=== PATIENT | female | born 1945 | race Caucasian/White ===

== ENCOUNTER → 2019-02-05 10:17 | Outpatient (CLI) | payer MEDICARE, SELFPAY ==
[2019-02-05 11:17] LABS: Color, Urine Yellow (Yellow); Glucose, Dipstick Normal (Normal); Ketone-Dipstick 5 mg/dl (Negative); Leukocyte Esterase-Dipstick 500 /ul (Negative); Nitrite-Dipstick Negative (Negative); Occult Blood-Urine Negative /ul (Negative); Protein-Dipstick 30 mg/dl (Negative); Urine Bilirubin Dipstick Negative (Negative); Urine Clarity Sl. Cloudy (Clear); Urine Urobilinogen Normal (Normal)
[2019-02-05 11:18] LABS: Absolute Lymphocyte Count 1.49 X10^3/uL (0.83-4.51); Absolute Neutrophil Count 4.7 X10^3/uL (2.0-7.7); Basophil# 0.03 X10^3/uL; Basophil% 0.4 % (0-1); Eosinophil# 0.09 X10^3/uL; Eosinophils% 1.3 % (0-5); Hematocrit 47.2 % (37-47); Hemoglobin 15.2 g/dL (12.0-15.0); Lymphocyte # 1.49 X10^3/ul (4.0); Lymphocyte % 21.5 % (19-41); Mean Corp Hgb Conc 32.2 g/dL (32-36); Mean Corpuscular Hgb 30.4 pg (27.0-32.0); Mean Corpuscular Volume 94.4 fL (81-99); Mean Platelet Vol. 9.8 fl (6.2-12.0); Monocyte# 0.59 X10^3/uL; Monocyte% 8.5 % (0-10); NRBC Flagged by Analyzer 0 % (0-5); Neutrophil # 4.68 X10^3/uL (2.7-7.7); Neutrophil % 67.6 % (47-70); Platelet Count 237 K/mm3 (150-450); RBC Distribution Width CV 13.8 % (11.6-14.6); RBC Distribution Width SD 47.7 fl (35.1-43.9); White Blood Count 6.9 K/mm3 (4.4-11.0)
[2019-02-05 11:38] LABS: Hemoglobin A1c 8.3 % (4.2-6.3)
[2019-02-05 11:48] LABS: ALB/GLOB Ratio 0.9 RATIO (0.9-2.4); AST(SGOT) 15 U/L (15-37); Alanine Aminotransfer ALT/SGPT 29 U/L (13-56); Albumin, Serum 3.5 g/dL (3.2-5.0); Alkaline Phosphatase 117 U/L (45-117); Anion Gap 8 (5-15); BUN 22 mg/dL (7-18); BUN/Creat Ratio 23.6 RATIO (10-20); CRP, High Sensitivity Cardiac 3.27 mg/L; Calcium,Total 8.9 mg/dL (8.5-10.1); Chloride 108 mmol/L (98-107); Cholesterol 201 mg/dL (200); Creatinine, Serum 0.93 mg/dL (0.55-1.02); EST Glomerular Filtration Rate 63 mL/min (>60); Est Glom Filt Rate - Afr Amer 76 mL/min (>60); Globulin 4.1 g/dL (2.2-4.2); Glucose 94 mg/dL (74-106); High Density Lipoprotein 83 mg/dL; Potassium 4.3 mmol/L (3.5-5.1); Protein, Total 7.6 g/dL (6.4-8.2); Sodium Level 141 mmol/L (136-145); Thyroid Stim Hormone (TSH) 1.65 uIU/mL (0.358-3.74); Triglycerides 82 mg/dL; Very Low Density Lipoprotein 16 mg/dL (5-40)
[2019-02-07 10:53] LABS: Vitamin D,25 Hydroxy 16.3 ng/mL (29.95-100.01)
[2019-02-07 11:24] LABS: BNP,B-Type NATRIURETIC PEPTIDE 18.9 pg/mL (0-100)
[2019-02-07 14:07] LABS: Red Blood Cell Count Test/G6PD 4.84 x10E6/uL (3.77-5.28)
[2019-02-07 16:30] LABS: G6PD Quant Test 258 (146-376)
== END ==
PROVIDERS: Referring Provider Nurse Practitioner Family; Visit Provider Nurse Practitioner Family
DX: E66.9 Obesity, unspecified (principal); R53.82 Chronic fatigue, unspecified
CPT/HCPCS: 36415; 80053; 80061; 81002; 82306; 82955; 83036; 83880; 84443; 85025; 86141

== ENCOUNTER 2023-06-18 08:30 | Outpatient (RCR) | payer MEDICARE, SELFPAY ==
[2023-06-04 09:19] VITALS: BP 144/89; PULSE 93; RESP 18; TEMP 36; BMI 45.5
--- NOTE | 2023-06-04 09:22 | PCM.WC.HP ---
History of Present Illness Date of Service: 06/04/23 Chief Complaint: Right lower extremity ulceration History of Wound: Patient is a 77-year-old female with PMHx of HTN, diabetes mellitus type II, HLD, obesity who presents to the wound care center for right lower extremity ulceration with localized redness. Patient had been started on doxycycline and silver sulfasalazine cream with compression stocking. There was some improvement noted by nurse practitioner however they did switch her to Bactrim for 10 days, stop date 06/05/2023 and daily application of Medihoney. She states she has not been wearing the compression stockings or Tubigrip. She was referred to the wound center for a nonhealing ulceration to the posterior aspect of the right lower extremity. Patient denies N/V/F/chills. Denies further complaints. [facility] Medical History (Updated 06/04/23 @ 10:[address] Antoine Pickard, DPReyna) Benign hypertension Breast lump Diabetes Diabetes High blood pressure High cholesterol Kidney stones Mixed hyperlipidemia Obesity UTI (urinary tract infection) Home Medications Ozempic 0.25 mg or 0.5 mg (2 mg/1.5 mL) subcutaneous pen injector (semaglutide) 0.5 mg (0.4 mL) subcut QWEEK #1.5 mL 09/05/20 [Rx Last Taken Unknown] allopurinol 300 mg tablet tablet PO 09/05/20 [History Last Taken Unknown] atorvastatin 20 mg tablet 10 mg PO DAILY 09/05/20 [History Last Taken Unknown] enalapril maleate 20 mg tablet tablet PO 09/05/20 [History Last Taken Unknown] insulin glargine 100 unit/mL subcutaneous solution 50 unit subcut QPM 09/05/20 [History Last Taken Unknown] insulin glargine 100 unit/mL subcutaneous solution (Lantus U-100 Insulin) 50 unit (0.5 mL) subcut DAILY #10 mL 09/05/20 [Rx Last Taken Unknown] metoprolol succinate 50 mg tablet,extended release 24 hr ea PO 09/05/20 [History Last Taken Unknown] nystatin 100,000 unit/gram topical cream gm topical 09/05/20 [History Last Taken Unknown] omeprazole 20 mg capsule,delayed release cap PO 09/05/20 [History Last Taken Unknown] potassium citrate 10 mEq (1,080 mg) tablet,extended release tablet PO 09/05/20 [History Last Taken Unknown] Allergy/AdvReac Type Severity Reaction Status Date / Time clindamycin Allergy Severe swelling Verified 09/05/20 13:08 erythromycin base Allergy Severe swelling Verified 09/05/20 13:08 Penicillins Allergy Severe swelling Verified 09/05/20 13:08 Family History Other Bowel disease Surgical History H/O ileostomy H/O lithotripsy H/O: hysterectomy Social History Smoking Status: Never smoker alcohol intake: never substance use type: does not use what type of physical activity do you participate in: none ROS Constitutional Constitutional: Denies anorexia, chills or fever(s) Eyes Eyes: Denies blurry vision, change in vision or double vision ENT HEENT: Denies dysphagia, nasal congestion, nasal discharge or sore throat Cardiovascular Cardiovascular: Denies chest pain, claudication or palpitations Respiratory/Chest Respiratory/Chest: Denies cough, shortness of breath at rest or wheezing Gastrointestinal Gastrointestinal: Denies abdominal pain, constipation, diarrhea, nausea or vomiting Genitourinary Genitourinary: Denies dysuria, hematuria or urinary urgency Musculoskeletal Musculoskeletal: Denies joint pain, joint stiffness or joint swelling Integumentary Integumentary: Denies lesions, pruritus or rash Neurologic Neurologic: Denies dizziness, numbness or seizures Psychiatric Psychiatric: Denies anxiety or depression Endocrine Endocrinology: Denies cold intolerance or heat intolerance Hematologic/Lymphatic Hematologic/Lymphatic: Denies easy bleeding or easy bruising Physical Exam Const alert, oriented x3, no apparent distress and well nourished General Appearance: cooperative HEENT normocephalic Eyes General Eye: normal appearance of both eyes Neck General: normal visual inspection Lymph Lymphatic: no lymphadenopathy noted and no lymphedema noted Chest inspection of chest normal Resp normal respiratory effort Cardio regular rate and regular rhythm Extremity normal capillary refill, no joint enlargement, no calf tenderness and no pedal edema Extremity Narrative: Vascular: DP and PT pulses palpable to bilateral lower extremity. Capillary fill time less than 4 seconds to digits bilateral. Temperature gradient is normal bilateral. Hair growth diminished to digits bilateral. Musculoskeletal: Muscle strength 5 of 5 age-appropriate. There is decreased range of motion of the ankle joint in dorsiflexion bilateral with the knee extended without pain or crepitus. There is decreased range of motion of the first metatarsophalangeal joint bilateral without pain or crepitus noted. Dermatological: There is noted bilateral lipodermatosclerosis with hyperpigmentation?hemosiderin staining to anterior lower extremity bilateral. There is a positive Stemmer sign noted bilateral second digit. Left lower extremity demonstrates no open wounds currently. Right lower extremity demonstrates a posterior mid calf ulceration secondary to chronic venous stasis/insufficiency. Ulceration demonstrates mixed fibrogranular layer with serous fluid drainage. Ulceration demonstrates localized rubor secondary to her chronic venous stasis. No signs of infection. Skin no rashes or lesions noted, skin turgor normal and no jaundice General Skin Exam: venous stasis and dermatitis Neuro moves all extremities Debridement Note Debridement Note Wound debrided: Right lower extremity Laterality: Right Wound Grade/Stage: Talbot stage I Type of Debridement: Excisional debridement Anesthesia Used: 5% Lidocaine Gel Depth: Down to and including healthy tissue and in the subcutaneous layer Percentage of wound debrided: 100 Instrument Used: 5mm curette Tissue Removed: Fibrous, devitalized subcutaneous, biofilm, slough Severity: Fat Layer Exposed Amount of bleeding with debridement: Mild Bleeding Controlled with: Compression and gauze Patient tolerated procedure: Patient tolerated procedure well Assessment/Plan Assessment/Plan (1) Non-pressure chronic ulcer of right calf with fat layer exposed: CODE(S): L97.212 - Non-pressure chronic ulcer of right calf with fat layer exposed (2) Lipodermatosclerosis of both lower extremities: CODE(S): M79.3 - Panniculitis, unspecified (3) Lymphedema, not elsewhere classified: CODE(S): I89.0 - Lymphedema, not elsewhere classified (4) Venous insufficiency (chronic) (peripheral): CODE(S): I87.2 - Venous insufficiency (chronic) (peripheral) (5) Diabetes: CODE(S): E11.9 - Type 2 diabetes mellitus without complications QUALIFIERS: Diabetes mellitus complication status: with hyperglycemia Diabetes mellitus salvage determiner insulin use: with salvage determiner use Diabetes mellitus type: type 2 Qualified Code(s): E11.65 - Type 2 diabetes mellitus with hyperglycemia; Z79.4 - alf (current) use of insulin (6) Benign hypertension: CODE(S): I10 - Essential (primary) hypertension (7) Mixed hyperlipidemia: CODE(S): E78.2 - Mixed hyperlipidemia (8) Obesity: CODE(S): E66.9 - Obesity, unspecified QUALIFIERS: Body mass index: BMI 40.0-44.9 Obesity classification: adult class 3 (BMI >= 40) Obesity type: due to excess calories Serious obesity comorbidity presence: with serious comorbidity Qualified Code(s): E66.01 - Morbid (severe) obesity due to excess calories; Z68.41 - Body mass index [BMI]40.0-44.9, adult PLAN: Plan Patient seen and evaluated Ulceration to the posterior right lower extremity underwent debridement as noted in the clinical panel above. Ulceration measures 4.0 cm x 2.0 cm x 0.1 cm. No signs of infection. Autumn applied to the wound base today and dressed with Unna boot compression to the right lower extremity. Unna boot compression was also applied to the left lower extremity. She was instructed to not get the dressings wet. Will seek approval for application of advanced wound care product for application at next visit. Discussed the importance of wearing compression stockings as patient has longstanding history of chronic venous insufficiency with lipodermatosclerosis of bilateral lower extremity. This was discussed with patient and daughter today. Discussed continued elevation of the lower extremities at all times of rest. Discussed the importance of compression to aid in wound healing in addition to preventing recidivism of wound following her healed status. Discussed adequate protein intake to aid in wound healing. Gunnar supplementation recommended. Discussed proper diabetic diet to aid in overall glycemic control. Discussed importance of glycemic control in healing. Discussed importance of daily foot checks, discussed she is to not ambulate barefoot, this includes socks. And shoe gear was encouraged to be worn at all times. Patient was encouraged to finish current oral antibiotic Bactrim to completion, stop date 06/05/2023. Discussed signs and symptoms of infection and to observe for. Discussed if she gets redness about the wound that moves up the leg, increasing purulent drainage, increasing foul odor from the wound, or if she experiences fever greater than 101 degree accompanied by nausea, vomiting, chills that these are signs of a progressing infection and she should report to the ED for IV antibiotics and further evaluation. She voices understanding of this today. The following work up and care recommendations were made: Dressing: Autumn, dry sterile dressing, bilateral Unna boot compression. Do not change dressing Wash: Do not get wet Tissue growth optimization: Autumn Offload: Continue to elevate and pad posterior right lower extremity with pillow to offload ulcerative site. Vascular: Palpable DP and PT pulses with adequate capillary fill time, vascular status is not impacting healing at this time. Edema: Continued elevation of the lower extremities to aid in edema control, continued use of compression stockings Infection: No signs of infection. Patient currently finishing oral antibiotic as stated above. Pain: May take [id number] Tylenol for discomfort Host factors: DM type II, lipodermatosclerosis bilateral, chronic venous insufficiency/stasis, lymphedema, patient compliance in wearing compression stocking I answered all the patient's questions. To return to the wound healing center in 1 week or call sooner if the patient has any questions or concerns.
[2023-06-08 14:46] VITALS: BP 142/63; PULSE 96; RESP 20; TEMP 36.1; BMI 45.5
--- NOTE | 2023-06-11 11:30 | PCM.WC.PN ---
History of Present Illness Date of Service: 06/11/23 Chief Complaint: Right lower extremity ulceration History of Wound: Patient is a 77-year-old female with PMHx of HTN, diabetes mellitus type II, HLD, obesity who presents to the wound care center for right lower extremity ulceration with localized redness. Patient had been started on doxycycline and silver sulfasalazine cream with compression stocking. There was some improvement noted by nurse practitioner however they did switch her to Bactrim for 10 days, stop date 06/05/2023 and daily application of Medihoney. She states she has not been wearing the compression stockings or Tubigrip. She was referred to the wound center for a nonhealing ulceration to the posterior aspect of the right lower extremity. Patient denies N/V/F/chills. Denies further complaints. Subjective Subjective This is a 77-year-old female who presents today to the wound center for follow-up of right lower extremity ulceration. Patient has kept dressings clean, dry, and intact to bilateral lower extremity, Unna boot dressing was then changed earlier in the week. Patient states she has tolerated this well and can notice some of the swelling is starting to decrease. She denies constitutional symptoms today. Denies further complaints today. Objective Data Objective Data Vital Signs: Vital Signs Temp Pulse Resp BP O2 Del Method 97 F L 96 20 H 142/63 H Room Air 06/08/23 14:46 06/08/23 14:46 06/08/23 14:46 06/08/23 14:46 06/04/23 09:19 Oxygen Delivery Method Room Air Weight: 109.316 kg Body Mass Index (BMI) 45.5 Physical Exam Const alert, oriented x3, no apparent distress and well nourished General Appearance: cooperative HEENT normocephalic Eyes General Eye: normal appearance of both eyes Neck General: normal visual inspection Lymph Lymphatic: no lymphadenopathy noted and no lymphedema noted Chest inspection of chest normal Resp normal respiratory effort Cardio regular rate and regular rhythm Extremity normal capillary refill, no joint enlargement, no calf tenderness and no pedal edema Extremity Narrative: Vascular: DP and PT pulses palpable to bilateral lower extremity. Capillary fill time less than 4 seconds to digits bilateral. Temperature gradient is normal bilateral. Hair growth diminished to digits bilateral. Musculoskeletal: Muscle strength 5 of 5 age-appropriate. There is decreased range of motion of the ankle joint in dorsiflexion bilateral with the knee extended without pain or crepitus. There is decreased range of motion of the first metatarsophalangeal joint bilateral without pain or crepitus noted. Dermatological: There is noted bilateral lipodermatosclerosis with hyperpigmentation?hemosiderin staining to anterior lower extremity bilateral. There is a positive Stemmer sign noted bilateral second digit. Left lower extremity demonstrates no open wounds currently. Right lower extremity demonstrates a posterior mid calf ulceration secondary to chronic venous stasis/insufficiency. Ulceration demonstrates mixed fibrogranular layer with serous fluid drainage. Ulceration demonstrates localized rubor secondary to her chronic venous stasis. No signs of infection. Skin no rashes or lesions noted, skin turgor normal and no jaundice General Skin Exam: venous stasis and dermatitis Neuro moves all extremities Debridement Note Debridement Note Wound debrided: Right lower extremity Laterality: Right Wound Grade/Stage: Talbot stage I Type of Debridement: Excisional debridement Anesthesia Used: 5% Lidocaine Gel Depth: Down to and including healthy tissue and in the subcutaneous layer Percentage of wound debrided: 100 Instrument Used: 5mm curette Tissue Removed: Fibrous, devitalized subcutaneous, biofilm, slough Severity: Fat Layer Exposed Amount of bleeding with debridement: Mild Bleeding Controlled with: Compression and gauze Patient tolerated procedure: Patient tolerated procedure well Post-Debridement Measurements and Additional Note: Post-Debridement Measurements/Treatment - Nurse 1 - General Ulcer Assessment Start: 06/04/23 09:02 Freq: Status: Active Protocol: [email or web address] Activity Type Activity Date Activity User E-sign Co-sign Detail Recorded Client Recorded Date Recorded By Document 06/04/23 09:19 KW Desktop 06/04/23 09:38 KW Document 06/08/23 14:46 DL Desktop 06/08/23 14:48 DL 06/04/23 06/08/23 09:19 14:46 - Today's Visit Information Type of service Initial Visit Nurse-only Visit Arrival Mode Ambulatory, Ambulatory, Walker Walker Transfer Assistance None Accompanied by daughter Patient Identification Verified (Name & Yes Yes ) Patient Requires Transmission-Based No Precautions Finger Stick Blood Sugar(mg/dl) (if 97 indicated): Blood Sugar Stated by Patient Height and Weight Height 5 ft 1 in Weight 109.316 kg Weight in Pounds 241.0 lbs Weight Measurement Method Estimated by Patient Body Mass Index (BMI) 45.5 45.5 BMI Classification Obese Obese BSA - Audrey 2.04 Vital Signs Temperature (97.8 F-99.1 F) 96.8 F L 97 F L Temperature Source Temporal Temporal Pulse Rate (60-100) 93 96 Pulse Location Monitor Monitor Respiratory Rate (12-18) 18 20 H Respiratory rate source Observation Observation Oxygen Delivery Method Room Air Blood Pressure (90/60-120/80) 144/89 H 142/63 H Blood Pressure Mean (mm Hg) 107 89 Source Monitor Monitor Position Semi-Fowlers Blood Pressure Location Left Arm History Since Last Visit- (Skip if this is Patient's initial visit) Have you changed medications since your No last visit? Any new allergies or adverse reactions No Had a fall/change in ADL's that may No increase risk of falls Signs or symptoms of abuse and/or No neglect since last visit Have you been in the hospital since your No last visit? Has dressing in place as prescribed Yes Has compression in place as prescribed Yes Has offloadiing in place as prescribed Yes Experienced any changes in pain level or No management Left Footwear Regular Shoe Right Footwear Regular Shoe Pain Scale: 0-10 Numeric Is Patient Pain Free? Yes Yes Lower Extremity Assessment/ Foot Assessment/ Toe Nail Assessment Right -Posterior Tibial Doppler Monophasic -Dorsalis Pedis Doppler Multiphasic -Hair Growth on Legs Yes -Hair Growth on Toes No -Temperature of Extremity Cool -Capillary Refill Less than 3 Seconds -Thick No -Discolored No -Deformed No -Improper Length & Hygeine No Left -Posterior Tibial Doppler Inaudible -Dorsalis Pedis Doppler Multiphasic -Hair Growth on Legs Yes -Hair Growth on Toes No -Temperature of Extremity Cool -Capillary Refill Less than 3 Seconds -Thick No -Discolored No -Deformed No -Improper Length & Hygeine No Communication Assessment Preferred language Kosovan Route Manager Required No Able to Read Yes Able to Write Yes Caregiver Communication Skills No Impairment Impairment Right Hearing Abillity Normal Left Hearing Abillity Normal Visual Assistive Devices Glasses Teaching Assessment Preferences Verbal,Written, Demonstration Barriers to Learning None Readiness To Learn Excellent Willingness to Engage in Self Management High Activies Readiness to Engage in Self Management High Activities Anxiety Level Calm Cooperation Cooperative Perception Coherent Interest in Health Problem Asks Questions Education Importance Acknowledges Need Does Patient Smoke tobacco or other Yes substances Smoking Status Never smoker Is Patient Diabetic Yes Functional Assessment Recent Decline in Ability to Perform Denies Any Declines Culture/Orthodox/Medicaid Nurse Cultural/Orthodox Needs that may affect No Treatment Plan Would you allow our hospital marriage and family counselor to No meet you for the purpose of spiritual/ emotional support? Medicaid Nurse to contact place of alevism No WC - Nurse 1 - General Ulcer Measurement Start: 06/04/23 09:02 Freq: Status: Active Protocol: Activity Type Activity Date Activity User E-sign Co-sign Detail Recorded Client Recorded Date Recorded By Document 06/04/23 09:19 KW Desktop 06/04/23 09:38 KW Document 06/08/23 14:46 DL Desktop 06/08/23 14:48 DL 06/04/23 06/08/23 09:19 14:46 Wound Center Nurse 1 #1 RT POST LOWER EXT -Current Size (cm) - Length 1.7 -Current Size (cm) - Width 5 -Current Size (cm) - Depth 0.1 -Total Square Cm 8.5 -Exudate Amt Small Medium -Exudate Type Serosanguineous Serosanguineous -Wound Margin Distinct, Distinct, Outline Outline Attached Attached -Granulation Amt Small (1-33%) -Granulation Quality [place] -Necrosis Amt Large (67-100%) -Necrotic Tissue Type Adherent Slough -Structure Exposed N/A -Texture ([place]-wound Skin Appearance) Assessed, No Abnormality Localized Edema -Moisture ([place]-wound Skin Appearance) Assessed No Abnormality -Color ([place]-wound Skin Appearance) Assessed, No Abnormality Erythema -Temperature ([place]-wound Skin No Abnormality No Abnormality Appearance) (Pt Warm) (Pt Warm) -Tenderness on Palpation ([place]-wound No Skin Appearance) -Ulcer Cleansing Soap and Water Soap and Water -Foul Odor after Cleansing No -Anesthetic Used 5% Lidocaine Gel Right Calf (cm) 47.5 42 Right Ankle (cm) 23.5 23.3 Left Calf (cm) 47.5 42 Left Ankle (cm) 24.5 22 WC - Nurse 2 - General Ulcer CM Notes Start: 06/04/23 09:02 Freq: Status: Active Protocol: Activity Type Activity Date Activity User E-sign Co-sign Detail Recorded Client Recorded Date Recorded By Document 06/04/23 09:48 BM Desktop 06/04/23 09:50 BMF 06/04/23 09:48 Wound Center Nurse 2 #1 RT POST LOWER EXT -Time 09:48 -Correct Patient Yes -Correct Side, Site, Position Yes -Correct Procedure Yes -Procedure Performed Yes -Type of Procedure Debridement -Clinical Debridement Subcutaneous -Tissue Removed Subcutaneous -Post Debridement (cm) - Length 4 -Post Debridement (cm) - Width 2 -Post Debridement (cm) - Depth 0.1 -Total Square (Post) (cm) 8 -Area of Debridement (cm) - Length 4 -Area of Debridement (cm) - Width 2 -Total Square (Area) (cm) 8 -Tunneling No -Undermining/Tunneling No -Circular Undermining No -Wound/Ulcer Outcome Not Healed -Ulcer Cleansing Rinsed/ Irrigated with Saline -Foul Odor after Cleansing No -Bioengineered Tissue No -Bleeding Controlled with Pressure -Treatment Response Procedure Tolerated Well -Offloading No -Debridement - Subq, 1st 20sq cm Yes Pain Scale: 0-10 Numeric Is Patient Pain Free? Yes WC - Nurse 3 - General Ulcer D/C NN Start: 06/04/23 09:02 Freq: Status: Active Protocol: Activity Type Activity Date Activity User E-sign Co-sign Detail Recorded Client Recorded Date Recorded By Document 06/04/23 10:00 KW Desktop 06/04/23 10:01 KW Document 06/08/23 14:46 DL Desktop 06/08/23 14:48 DL 06/04/23 06/08/23 10:00 14:46 Wound Care Center Nurse 3 #1 RT POST LOWER EXT -Ulcer Cleansing Soap and Water -Foul Odor after Cleansing No -Primary Dressing Applied Promogran Aden Matter -Other Dressing aden -Primary Dressing Covered/Secured with Dry Gauze -Promogran Aden Matter 1 BLE -Multi-Layered Wrap Application Unna Boot - Unna Boot - Bilateral ($) Bilateral ($) Treatment Response Procedure Tolerated Well Vital Signs Temperature (97.8 F-99.1 F) 97 F L Temperature Source Temporal Pulse Rate (60-100) 96 Pulse Location Monitor Respiratory Rate (12-18) 20 H Respiratory rate source Observation Blood Pressure (90/60-120/80) 142/63 H Blood Pressure Mean (mm Hg) 89 Source Monitor Pain Scale: 0-10 Numeric Is Patient Pain Free? Yes Yes WC - Visit Discharge Discharge Condition Stable Stable Ambulatory Status Ambulatory, Ambulatory, Walker Walker Transportation Private Auto Private Auto Medication Reconcilliation completed & No provided to patient/care provider Clinical Summary of Care Provided Yes Assessment/Plan Assessment/Plan (1) Non-pressure chronic ulcer of right calf with fat layer exposed: CODE(S): L97.212 - Non-pressure chronic ulcer of right calf with fat layer exposed (2) Lipodermatosclerosis of both lower extremities: CODE(S): M79.3 - Panniculitis, unspecified (3) Lymphedema, not elsewhere classified: CODE(S): I89.0 - Lymphedema, not elsewhere classified (4) Venous insufficiency (chronic) (peripheral): CODE(S): I87.2 - Venous insufficiency (chronic) (peripheral) (5) Diabetes: CODE(S): E11.9 - Type 2 diabetes mellitus without complications QUALIFIERS: Diabetes mellitus complication status: with hyperglycemia Diabetes mellitus rn long term care insulin use: with rn long term care use Diabetes mellitus type: type 2 Qualified Code(s): E11.65 - Type 2 diabetes mellitus with hyperglycemia; Z79.4 - watermelon inspector (current) use of insulin (6) Benign hypertension: CODE(S): I10 - Essential (primary) hypertension (7) Mixed hyperlipidemia: CODE(S): E78.2 - Mixed hyperlipidemia (8) Obesity: CODE(S): E66.9 - Obesity, unspecified QUALIFIERS: Body mass index: BMI 40.0-44.9 Obesity classification: adult class 3 (BMI >= 40) Obesity type: due to excess calories Serious obesity comorbidity presence: with serious comorbidity Qualified Code(s): E66.01 - Morbid (severe) obesity due to excess calories; Z68.41 - Body mass index [BMI]40.0-44.9, adult PLAN: Plan Patient seen and evaluated Ulceration to the posterior right lower extremity underwent debridement as noted in the clinical panel above. Ulceration measures 1.8 cm x 3.8 cm x 0.1 cm. No signs of infection. TheraSkin graft #1 applied to the wound bed today. Graft anchored with Adaptic touch and Steri-Strips. Dry sterile dressing applied over the graft. Tubigrip compression applied to lower extremity bilateral. She was instructed to not get the dressings wet to the right lower extremity. There is slight improvement in wound size versus previous visit. She has been approved for advanced wound care product, TheraSkin and will continue to apply. Discussed the importance of wearing compression stockings as patient has longstanding history of chronic venous insufficiency with lipodermatosclerosis of bilateral lower extremity. This was discussed with patient and daughter today. Discussed continued elevation of the lower extremities at all times of rest. Discussed the importance of compression to aid in wound healing in addition to preventing recidivism of wound following her healed status. Discussed adequate protein intake to aid in wound healing. Gunnar supplementation recommended. Discussed proper diabetic diet to aid in overall glycemic control. Discussed importance of glycemic control in healing. Discussed importance of daily foot checks, discussed she is to not ambulate barefoot, this includes socks. And shoe gear was encouraged to be worn at all times. Patient was encouraged to finish current oral antibiotic Bactrim to completion, stop date 06/05/2023. Discussed signs and symptoms of infection and to observe for. Discussed if she gets redness about the wound that moves up the leg, increasing purulent drainage, increasing foul odor from the wound, or if she experiences fever greater than 101 degree accompanied by nausea, vomiting, chills that these are signs of a progressing infection and she should report to the ED for IV antibiotics and further evaluation. She voices understanding of this today. The following work up and care recommendations were made: Dressing: TheraSkin, Adaptic touch, Steri-Strips, dry sterile dressing. Tubigrip compression bilateral lower extremity. Do not get wet right lower extremity Wash: Do not get wet Tissue growth optimization: TheraSkin Offload: Continue to elevate and pad posterior right lower extremity with pillow to offload ulcerative site. Vascular: Palpable DP and PT pulses with adequate capillary fill time, vascular status is not impacting healing at this time. Edema: Continued elevation of the lower extremities to aid in edema control, continued use of compression stockings Infection: No signs of infection. Patient currently finishing oral antibiotic as stated above. Pain: May take [id number] Tylenol for discomfort Host factors: DM type II, lipodermatosclerosis bilateral, chronic venous insufficiency/stasis, lymphedema, patient compliance in wearing compression stocking I answered all the patient's questions. To return to the wound healing center in 1 week or call sooner if the patient has any questions or concerns.
[2023-06-11 11:37] VITALS: BP 162/79; PULSE 108; RESP 18; TEMP 35.8; BMI 45.5
[2023-06-18 08:33] VITALS: BP 140/73; PULSE 93; RESP 18; TEMP 35.9; BMI 45.5
--- NOTE | 2023-06-18 09:35 | PN.PCM_ITS ---
History of Present Illness Date of Service: 06/18/23 Chief Complaint: Right lower extremity ulceration History of Wound: Patient is a 77-year-old female with PMHx of HTN, diabetes mellitus type II, HLD, obesity who presents to the wound care center for right lower extremity ulceration with localized redness. Patient had been started on doxycycline and silver sulfasalazine cream with compression stocking. There was some improvement noted by nurse practitioner however they did switch her to Bactrim for 10 days, stop date 06/05/2023 and daily application of Medihoney. She states she has not been wearing the compression stockings or Tubigrip. She was referred to the wound center for a nonhealing ulceration to the posterior aspect of the right lower extremity. Patient denies N/V/F/chills. Denies further complaints. Subjective Subjective This is a 77-year-old female who presents today to the wound center for follow- up of right lower extremity ulceration. Patient has kept dressings clean, dry, and intact to bilateral lower extremity with graft in place. She is changing outer dressings as needed. She denies constitutional symptoms today. Denies further complaints today. Objective Data Objective Data Vital Signs: Vital Signs Temp Pulse Resp BP O2 Del Method 96.7 F L 93 18 140/73 H Room Air 06/18/23 08:33 06/18/23 08:33 06/18/23 08:33 06/18/23 08:33 06/18/23 08:33 Oxygen Delivery Method Room Air Weight: 109.316 kg Body Mass Index (BMI) 45.5 Physical Exam Const alert, oriented x3, no apparent distress and well nourished General Appearance: cooperative HEENT normocephalic Eyes General Eye: normal appearance of both eyes Neck General: normal visual inspection Lymph Lymphatic: no lymphadenopathy noted and no lymphedema noted Chest inspection of chest normal Resp normal respiratory effort Cardio regular rate and regular rhythm Extremity normal capillary refill, no joint enlargement, no calf tenderness and no pedal edema Extremity Narrative: Vascular: DP and PT pulses palpable to bilateral lower extremity. Capillary fill time less than 4 seconds to digits bilateral. Temperature gradient is normal bilateral. Hair growth diminished to digits bilateral. Musculoskeletal: Muscle strength 5 of 5 age-appropriate. There is decreased range of motion of the ankle joint in dorsiflexion bilateral with the knee extended without pain or crepitus. There is decreased range of motion of the first metatarsophalangeal joint bilateral without pain or crepitus noted. Dermatological: There is noted bilateral lipodermatosclerosis with hyperpigmentation?hemosiderin staining to anterior lower extremity bilateral. There is a positive Stemmer sign noted bilateral second digit. Left lower extremity demonstrates no open wounds currently. Right lower extremity demonstrates a posterior mid calf ulceration secondary to chronic venous stasis/insufficiency. Ulceration demonstrates mixed fibrogranular layer with serous fluid drainage. Ulceration demonstrates localized rubor secondary to her chronic venous stasis. No signs of infection. Skin no rashes or lesions noted, skin turgor normal and no jaundice General Skin Exam: venous stasis and dermatitis Neuro moves all extremities Debridement Note Debridement Note Wound debrided: Right lower extremity Laterality: Right Wound Grade/Stage: Talbot stage I Type of Debridement: Excisional debridement Anesthesia Used: 5% Lidocaine Gel Depth: Down to and including healthy tissue and in the subcutaneous layer Percentage of wound debrided: 100 Instrument Used: 5mm curette Tissue Removed: Fibrous, devitalized subcutaneous, biofilm, slough Severity: Fat Layer Exposed Amount of bleeding with debridement: Mild Bleeding Controlled with: Compression and gauze Patient tolerated procedure: Patient tolerated procedure well Post-Debridement Measurements and Additional Note: Post-Debridement Measurements/Treatment - Nurse 1 - General Ulcer Assessment Start: 06/04/23 09:02 Freq: Status: Active Protocol: ROBIN Activity Type Activity Date Activity User E-sign Co-sign Detail Recorded Client Recorded Date Recorded By Document 06/04/23 09:19 KW Desktop 06/04/23 09:38 KW Document 06/08/23 14:46 DL Desktop 06/08/23 14:48 DL Document 06/11/23 11:37 KW Desktop 06/11/23 11:47 KW Document 06/18/23 08:33 GM Desktop 06/18/23 08:46 06/04/23 06/08/23 06/11/23 09:19 14:46 11:37 - Today's Visit Information Type of service Initial Visit Nurse-only Follow-up Visit Visit (Physician/SALES EXPERT ) Arrival Mode Ambulatory, Ambulatory, Ambulatory, Walker Walker Walker Transfer Assistance None Accompanied by daughter daughter Patient Identification Verified (Name & Yes Yes Yes ) Patient Requires Transmission-Based No Precautions Finger Stick Blood Sugar(mg/dl) (if 97 indicated): Blood Sugar Stated by Patient Height and Weight Height 5 ft 1 in Weight 109.316 kg Weight in Pounds 241.0 lbs Weight Measurement Method Estimated by Patient Body Mass Index (BMI) 45.5 45.5 45.5 BMI Classification Obese Obese Obese BSA - Audrey 2.04 Vital Signs Temperature (97.8 F-99.1 F) 96.8 F L 97 F L 96.5 F L Temperature Source Temporal Temporal Temporal Pulse Rate (60-100) 93 96 108 H Pulse Location Monitor Monitor Monitor Respiratory Rate (12-18) 18 20 H 18 Respiratory rate source Observation Observation Observation Oxygen Delivery Method Room Air Room Air Blood Pressure (90/60-120/80) 144/89 H 142/63 H 162/79 H Blood Pressure Mean (mm Hg) 107 89 106 Source Monitor Monitor Monitor Position Semi-Fowlers Semi-Fowlers Blood Pressure Location Left Arm Left Arm History Since Last Visit- (Skip if this is Patient's initial visit) Have you changed medications since your No No last visit? Any new allergies or adverse reactions No No Had a fall/change in ADL's that may No No increase risk of falls Signs or symptoms of abuse and/or No No neglect since last visit Have you been in the hospital since your No No last visit? Has dressing in place as prescribed Yes Yes Has compression in place as prescribed Yes Yes Has offloadiing in place as prescribed Yes N/A Experienced any changes in pain level or No No management Left Footwear Regular Shoe Regular Shoe Right Footwear Regular Shoe Regular Shoe Pain Scale: 0-10 Numeric Is Patient Pain Free? Yes Yes Yes Lower Extremity Assessment/ Foot Assessment/ Toe Nail Assessment Right -Posterior Tibial Doppler Monophasic -Dorsalis Pedis Doppler Multiphasic -Hair Growth on Legs Yes -Hair Growth on Toes No -Temperature of Extremity Cool -Capillary Refill Less than 3 Seconds -Thick No -Discolored No -Deformed No -Improper Length & Hygeine No Left -Posterior Tibial Doppler Inaudible -Dorsalis Pedis Doppler Multiphasic -Hair Growth on Legs Yes -Hair Growth on Toes No -Temperature of Extremity Cool -Capillary Refill Less than 3 Seconds -Thick No -Discolored No -Deformed No -Improper Length & Hygeine No Communication Assessment Preferred language Amharic Nutrition Specialist Required No Able to Read Yes Able to Write Yes Caregiver Communication Skills No Impairment Impairment Right Hearing Abillity Normal Left Hearing Abillity Normal Visual Assistive Devices Glasses Teaching Assessment Preferences Verbal,Written, Demonstration Barriers to Learning None Readiness To Learn Excellent Willingness to Engage in Self Management High Activies Readiness to Engage in Self Management High Activities Anxiety Level Calm Cooperation Cooperative Perception Coherent Interest in Health Problem Asks Questions Education Importance Acknowledges Need Does Patient Smoke tobacco or other Yes substances Smoking Status Never smoker Is Patient Diabetic Yes Functional Assessment Recent Decline in Ability to Perform Denies Any Declines Culture/Gnosticist/Water Hydrant Installer Cultural/Gnosticist Needs that may affect No Treatment Plan Would you allow our [facility] pre assembly wirer to No meet you for the purpose of spiritual/ emotional support? Water Hydrant Installer to contact place of yazdanism No 06/18/23 08:33 WC - Today's Visit Information Type of service Follow-up Visit (Physician/SALES EXPERT ) Arrival Mode Ambulatory Transfer Assistance Accompanied by Patient Identification Verified (Name & Yes ) Patient Requires Transmission-Based Precautions Finger Stick Blood Sugar(mg/dl) (if 87 indicated): Blood Sugar Stated by Patient Height and Weight Height Weight Weight in Pounds Weight Measurement Method Body Mass Index (BMI) 45.5 BMI Classification Obese [facility] - [place] Vital Signs Temperature (97.8 F-99.1 F) 96.7 F L Temperature Source Temporal Pulse Rate (60-100) 93 Pulse Location Monitor Respiratory Rate (12-18) 18 Respiratory rate source Observation Oxygen Delivery Method Room Air Blood Pressure (90/60-120/80) 140/73 H Blood Pressure Mean (mm Hg) 95 Source Monitor Position Sitting Blood Pressure Location History Since Last Visit- (Skip if this is Patient's initial visit) Have you changed medications since your No last visit? Any new allergies or adverse reactions No Had a fall/change in ADL's that may No increase risk of falls Signs or symptoms of abuse and/or neglect since last visit Have you been in the hospital since your No last visit? Has dressing in place as prescribed Yes Has compression in place as prescribed Has offloadiing in place as prescribed Experienced any changes in pain level or management Left Footwear Regular Shoe Right Footwear Regular Shoe Pain Scale: 0-10 Numeric Is Patient Pain Free? Yes Lower Extremity Assessment/ Foot Assessment/ Toe Nail Assessment Right -Posterior Tibial Doppler -Dorsalis Pedis Doppler -Hair Growth on Legs -Hair Growth on Toes -Temperature of Extremity -Capillary Refill -Thick -Discolored -Deformed -Improper Length & Hygeine Left -Posterior Tibial Doppler -Dorsalis Pedis Doppler -Hair Growth on Legs -Hair Growth on Toes -Temperature of Extremity -Capillary Refill -Thick -Discolored -Deformed -Improper Length & Hygeine Communication Assessment Preferred english as a second language teacher Required Able to Read Able to Write Caregiver Communication Skills Impairment Right Hearing Abillity Left Hearing Abillity Visual Assistive Devices Teaching Assessment Preferences Barriers to Learning Readiness To Learn Willingness to Engage in Self Management Activies Readiness to Engage in Self Management Activities Anxiety Level Cooperation Perception Interest in Health Problem Education Importance Does Patient Smoke tobacco or other substances Smoking Status Is Patient Diabetic Functional Assessment Recent Decline in Ability to Perform Culture/Gnosticist/Water Hydrant Installer Cultural/Gnosticist Needs that may affect Treatment Plan Would you allow our hospital pre assembly wirer to meet you for the purpose of spiritual/ emotional support? Water Hydrant Installer to contact place of yazdanism WC - Nurse 1 - General Ulcer Measurement Start: 06/04/23 09:02 Freq: Status: Active Protocol: Activity Type Activity Date Activity User E-sign Co-sign Detail Recorded Client Recorded Date Recorded By Document 06/04/23 09:19 KW Desktop 06/04/23 09:38 KW Document 06/08/23 14:46 DL Desktop 06/08/23 14:48 DL Document 06/11/23 11:37 KW Desktop 06/11/23 11:47 KW Document 06/18/23 08:33 GM Desktop 06/18/23 08:46 GM 06/04/23 06/08/23 06/11/23 09:19 14:46 11:37 Wound Center Nurse 1 #1 RT POST LOWER EXT -Current Size (cm) - Length 1.7 3 -Current Size (cm) - Width 5 3.2 -Current Size (cm) - Depth 0.1 0.1 -Total Square Cm 8.5 9.6 -Date of Last Picture (Recall this field) -Photo Taken -Epithelialization -Tunneling -Undermining/Tunneling -Circular Undermining -Exudate Amt Small Medium Small -Exudate Type Serosanguineous Serosanguineous Serosanguineous -Wound Margin Distinct, Distinct, Distinct, Outline Outline Outline Attached Attached Attached -Granulation Amt Small (1-33%) Large (67-100%) -Granulation Quality Leeper Red -Necrosis Amt Large (67-100%) Small (1-33%) -Necrotic Tissue Type Adherent Slough Adherent Slough -Structure Exposed N/A -Texture (Kelsea-wound Skin Appearance) Assessed, No Abnormality Assessed Localized Edema -Moisture ([place]elsea-wound Skin Appearance) Assessed No Abnormality Assessed -Color (Kelsea-wound Skin Appearance) Assessed, No Abnormality Assessed Erythema -Temperature ([place]-wound Skin No Abnormality No Abnormality No Abnormality Appearance) (Pt Warm) (Pt Warm) (Pt Warm) -Tenderness on Palpation ([place]elsea-wound No Skin Appearance) -Ulcer Cleansing Soap and Water Soap and Water Soap and Water -Foul Odor after Cleansing No No -Anesthetic Used 5% Lidocaine 5% Lidocaine Gel Gel Right Calf (cm) 47.5 42 40 Right Ankle (cm) 23.5 23.3 22.7 Left Calf (cm) 47.5 42 39.7 Left Ankle (cm) 24.5 22 21.3 06/18/23 08:33 Wound Center Nurse 1 #1 RT POST LOWER EXT -Current Size (cm) - Length 1.7 -Current Size (cm) - Width 3.4 -Current Size (cm) - Depth 0.1 -Total Square Cm 5.78 -Date of Last Picture (Recall this 06/18/23 field) -Photo Taken Yes -Epithelialization Small 1-33% -Tunneling No -Undermining/Tunneling No -Circular Undermining No -Exudate Amt -Exudate Type Serosanguineous -Wound Margin Distinct, Outline Attached -Granulation Amt Medium (34-66%) -Granulation Quality Red -Necrosis Amt Small (1-33%) -Necrotic Tissue Type -Structure Exposed -Texture (Kelsea-wound Skin Appearance) Assessed -Moisture ([place]elsea-wound Skin Appearance) Assessed -Color (Kelsea-wound Skin Appearance) Assessed -Temperature ([place]elsea-wound Skin No Abnormality Appearance) (Pt Warm) -Tenderness on Palpation (Kelsea-wound No Skin Appearance) -Ulcer Cleansing Soap and Water -Foul Odor after Cleansing No -Anesthetic Used 5% Lidocaine Gel Right Calf (cm) 41.5 Right Ankle (cm) 24 Left Calf (cm) Left Ankle (cm) WC - Nurse 2 - General Ulcer CM Notes Start: 06/04/23 09:02 Freq: Status: Active Protocol: Activity Type Activity Date Activity User E-sign Co-sign Detail Recorded Client Recorded Date Recorded By Document 06/04/23 09:48 [facility] Desktop 06/04/23 09:50 [facility] Document 06/11/23 11:58 [facility] Desktop 06/11/23 12:12 [facility] Document 06/18/23 09:20 [facility] Desktop 06/18/23 09:33 [facility] 06/04/23 06/11/23 06/18/23 09:48 11:58 09:20 Wound Center Nurse 2 #1 RT POST LOWER EXT -Time 09:48 11:59 09:26 -Correct Patient Yes Yes Yes -Correct Side, Site, Position Yes Yes Yes -Correct Procedure Yes Yes Yes -Procedure Performed Yes Yes Yes -Type of Procedure Debridement Debridement Debridement -Clinical Debridement Subcutaneous Subcutaneous Subcutaneous -Tissue Removed Subcutaneous Subcutaneous Subcutaneous -Post Debridement (cm) - Length 4 1.8 3.8 -Post Debridement (cm) - Width 2 3.8 3 -Post Debridement (cm) - Depth 0.1 0.1 0.1 -Total Square (Post) (cm) 8 6.84 11.4 -Area of Debridement (cm) - Length 4 1.8 3.8 -Area of Debridement (cm) - Width 2 3.8 3 -Total Square (Area) (cm) 8 6.84 11.4 -Tunneling No No No -Undermining/Tunneling No No No -Circular Undermining No No No -Wound/Ulcer Outcome Not Healed Not Healed Not Healed -Ulcer Cleansing Rinsed/ Rinsed/ Rinsed/ Irrigated with Irrigated with Irrigated with Saline Saline Saline -Foul Odor after Cleansing No No No -Bioengineered Tissue No No -Type of Bioengineered Tissue Theraskin Theraskin -Expiration Date 02/22/28 02/04/28 -Product Lot Number [id number] -Percent Used 100 100 -Lot number of Saline Used [id number] -Bleeding Controlled with Pressure Pressure Pressure -Treatment Response Procedure Procedure Procedure Tolerated Well Tolerated Well Tolerated Well -Offloading No No -Debridement - Subq, 1st 20sq cm Yes No No -Apply Skin Sub - 1st 25 sq cm - Legs 1 1 -Theraskin - 100TSXS (6 SQ CM) (per sq 6 6 cm) Pain Scale: 0-10 Numeric Is Patient Pain Free? Yes Yes Yes WC - Nurse 3 - General Ulcer D/C NN Start: 06/04/23 09:02 Freq: Status: Active Protocol: Activity Type Activity Date Activity User E-sign Co-sign Detail Recorded Client Recorded Date Recorded By Document 06/04/23 10:00 KW Desktop 06/04/23 10:01 KW Document 06/08/23 14:46 DL Desktop 06/08/23 14:48 DL Document 06/11/23 12:15 BMF Desktop 06/11/23 12:17 BMF Document 06/11/23 12:22 GM Desktop 06/11/23 12:23 GM 06/04/23 06/08/23 06/11/23 10:00 14:46 12:15 Wound Care Center Nurse 3 #1 RT POST LOWER EXT -Ulcer Cleansing Soap and Water -Foul Odor after Cleansing No -Primary Dressing Applied Promogran Aden Matter -Other Dressing aden [place] -Primary Dressing Covered/Secured with Dry Gauze Dry Gauze & Roll Gauze, Secured with Tape -Other Covering DRSG PER GM RN -Promogran Aden Matter 1 BLE -Lotion applied to leg before compression wrap -Multi-Layered Wrap Application Unna Boot - Unna Boot - Bilateral ($) Bilateral ($) -Tubular Bandage Double Layer -Size of Tubigrip Used Size E -Size E ($) 2 Treatment Response Procedure Procedure Tolerated Well Tolerated Well Vital Signs Temperature (97.8 F-99.1 F) 97 F L Temperature Source Temporal Pulse Rate (60-100) 96 Pulse Location Monitor Respiratory Rate (12-18) 20 H Respiratory rate source Observation Blood Pressure (90/60-120/80) 142/63 H Blood Pressure Mean (mm Hg) 89 Source Monitor Pain Scale: 0-10 Numeric Is Patient Pain Free? Yes Yes Yes Teaching: Wound Center Compression -Person Taught -Teaching Method -Response to teaching WC - Visit Discharge Discharge Condition Stable Stable Stable Ambulatory Status Ambulatory, Ambulatory, Ambulatory, Walker Walker Walker Transportation Private Auto Private Auto Private Auto Accompanied by DAUGHTER Medication Reconcilliation completed & No provided to patient/care provider Clinical Summary of Care Provided Yes 06/11/23 12:22 Wound Care Center Nurse 3 #1 RT POST LOWER EXT -Ulcer Cleansing Not Cleansed -Foul Odor after Cleansing -Primary Dressing Applied -Other Dressing -Primary Dressing Covered/Secured with Dry Gauze,Dry Gauze & Roll Gauze,Secured with Tape -Other Covering -Promogran Aden Matter BLE -Lotion applied to leg before No compression wrap -Multi-Layered Wrap Application -Tubular Bandage Double Layer -Size of Tubigrip Used Size E -Size E ($) 2 Treatment Response Vital Signs Temperature (97.8 F-99.1 F) Temperature Source Pulse Rate (60-100) Pulse Location Respiratory Rate (12-18) Respiratory rate source Blood Pressure (90/60-120/80) Blood Pressure Mean (mm Hg) Source Pain Scale: 0-10 Numeric Is Patient Pain Free? Yes Teaching: Wound Center Compression -Person Taught Patient -Teaching Method Discussion -Response to teaching Verbalize understanding WC - Visit Discharge Discharge Condition Stable Ambulatory Status Ambulatory, Walker Transportation Private Auto Accompanied by Medication Reconcilliation completed & Yes provided to patient/care provider Clinical Summary of Care Provided Yes Assessment/Plan Assessment/Plan (1) Non-pressure chronic ulcer of right calf with fat layer exposed: CODE(S): L97.212 - Non-pressure chronic ulcer of right calf with fat layer exposed (2) Lipodermatosclerosis of both lower extremities: CODE(S): M79.3 - Panniculitis, unspecified (3) Lymphedema, not elsewhere classified: CODE(S): I89.0 - Lymphedema, not elsewhere classified (4) Venous insufficiency (chronic) (peripheral): CODE(S): I87.2 - Venous insufficiency (chronic) (peripheral) (5) Diabetes: CODE(S): E11.9 - Type 2 diabetes mellitus without complications QUALIFIERS: Diabetes mellitus complication status: with hyperglycemia Diabetes mellitus long-term insulin use: with manager long term care use Diabetes mellitus type: type 2 Qualified Code(s): E11.65 - Type 2 diabetes mellitus with hyperglycemia; Z79.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 (6) Benign hypertension: CODE(S): I10 - Essential (primary) hypertension (7) Mixed hyperlipidemia: CODE(S): E78.2 - Mixed hyperlipidemia (8) Obesity: CODE(S): E66.9 - Obesity, unspecified QUALIFIERS: Body mass index: BMI 40.0-44.9 Obesity classificatio n: adult class 3 (BMI >= 40) Obesity type: due to excess calories Serious obesity comorbidity presence: with serious comorbidity Qualified Code(s): E66.01 - Morbid (severe) obesity due to excess calories; Z68.41 - Body mass index [BMI]40.0-44.9, adult PLAN: Plan Patient seen and evaluated Ulceration to the posterior right lower extremity underwent debridement as noted in the clinical panel above. Ulceration measures 1.8 cm x 3.8 cm x 0.1 cm. No signs of infection. TheraSkin graft #2 applied to the wound bed today. Graft anchored with Adaptic touch and Steri-Strips. Dry sterile dressing applied over the graft. Tubigrip compression applied to lower extremity bilateral. She was instructed to not get the dressings wet to the right lower extremity. There is no change in size in ulceration versus previous visit. She has been approved for advanced wound care product, TheraSkin and will continue to apply. Discussed the importance of wearing compression stockings as patient has longstanding history of chronic venous insufficiency with lipodermatosclerosis of bilateral lower extremity. This was discussed with patient and daughter today. Discussed continued elevation of the lower extremities at all times of rest. Discussed the importance of compression to aid in wound healing in addition to preventing recidivism of wound following her healed status. Discussed adequate protein intake to aid in wound healing. Gunnar supplementation recommended. Discussed proper diabetic diet to aid in overall glycemic control. Discussed importance of glycemic control in healing. Discussed importance of daily foot checks, discussed she is to not ambulate barefoot, this includes socks. And shoe gear was encouraged to be worn at all times. Patient was encouraged to finish current oral antibiotic Bactrim to completion, stop date 06/05/2023. Discussed signs and symptoms of infection and to observe for. Discussed if she gets redness about the wound that moves up the leg, increasing purulent drainage, increasing foul odor from the wound, or if she experiences fever greater than 101 degree accompanied by nausea, vomiting, chills that these are signs of a progressing infection and she should report to the ED for IV antibiotics and further evaluation. She voices understanding of this today. The following work up and care recommendations were made: Dressing: TheraSkin, Adaptic touch, Steri-Strips, dry sterile dressing. Tubigrip compression bilateral lower extremity. Do not get wet right lower extremity Wash: Do not get wet Tissue growth optimization: TheraSkin Offload: Continue to elevate and pad posterior right lower extremity with pillow to offload ulcerative site. Vascular: Palpable DP and PT pulses with adequate capillary fill time, vascular status is not impacting healing at this time. Edema: Continued elevation of the lower extremities to aid in edema control, continued use of compression stockings Infection: No signs of infection. Patient currently finishing oral antibiotic as stated above. Pain: May take [id number] Tylenol for discomfort Host factors: DM type II, lipodermatosclerosis bilateral, chronic venous insufficiency/stasis, lymphedema, patient compliance in wearing compression stocking I answered all the patient's questions. To return to the wound healing center in 1 week or call sooner if the patient has any questions or concerns.
== END 2023-06-21 23:59 | disposition home or self-care (01) ==
LOC: WC 08:30
PROVIDERS: PCP Nurse Practitioner Family; Referring Provider Nurse Practitioner Family; Visit Provider Student in an Organized Health Care Education/Training Program
DX: L97.212 Non-pressure chronic ulcer of right calf with fat layer exposed (principal); E66.01 Morbid (severe) obesity due to excess calories; Z68.41 Body mass index [BMI] 40.0-44.9, adult; E11.65 Type 2 diabetes mellitus with hyperglycemia; Z79.4 Long term (current) use of insulin; I10 Essential (primary) hypertension; E78.2 Mixed hyperlipidemia; I89.0 Lymphedema, not elsewhere classified; I87.2 Venous insufficiency (chronic) (peripheral); M79.3 Panniculitis, unspecified; Z79.899 Other long term (current) drug therapy
CPT/HCPCS: 11042; 15271; 29580; 99204; Q4121; G0463

== ENCOUNTER 2023-07-09 08:00 | Outpatient (RCR) | payer MEDICARE, SELFPAY ==
[2023-06-22 00:51] VITALS: BP 140/73; PULSE 93; RESP 18; TEMP 35.9; BMI 45.5
[2023-06-25 08:05] VITALS: BP 144/61; PULSE 98; RESP 20; TEMP 36.9; BMI 45.5
--- NOTE | 2023-06-25 09:11 | PCM.WC.PN ---
History of Present Illness Date of Service: 06/25/23 Chief Complaint: Right lower extremity ulceration History of Wound: Patient is a 77-year-old female with PMHx of HTN, diabetes mellitus type II, HLD, obesity who presents to the wound care center for right lower extremity ulceration with localized redness. Patient had been started on doxycycline and silver sulfasalazine cream with compression stocking. There was some improvement noted by nurse practitioner however they did switch her to Bactrim for 10 days, stop date 06/05/2023 and daily application of Medihoney. She states she has not been wearing the compression stockings or Tubigrip. She was referred to the wound center for a nonhealing ulceration to the posterior aspect of the right lower extremity. Patient denies N/V/F/chills. Denies further complaints. Subjective Subjective This is a 77-year-old female who presents today to the wound center for follow-up of right lower extremity ulceration. Patient has kept dressings clean, dry, and intact to bilateral lower extremity with graft in place. She is changing outer dressings as needed. States pain is improving in wound site. She denies constitutional symptoms today. Denies further complaints today. Objective Data Objective Data Vital Signs: Vital Signs Temp Pulse Resp BP 98.4 F 98 20 H 144/61 H 06/25/23 08:05 06/25/23 08:05 06/25/23 08:05 06/25/23 08:05 Weight: 109.316 kg Body Mass Index (BMI) 45.5 Physical Exam Const alert, oriented x3 and no apparent distress General Appearance: cooperative Nutritional Appearance: obese HEENT normocephalic Eyes General Eye: normal appearance of both eyes Neck General: normal visual inspection Lymph Lymphatic: no lymphadenopathy noted and no lymphedema noted Resp normal respiratory effort Cardio regular rate and regular rhythm Extremity normal capillary refill, no joint enlargement, no calf tenderness and no pedal edema Extremity Narrative: Vascular: DP and PT pulses palpable to bilateral lower extremity. Capillary fill time less than 4 seconds to digits bilateral. Temperature gradient is normal bilateral. Hair growth diminished to digits bilateral. Musculoskeletal: Muscle strength 5 of 5 age-appropriate. There is decreased range of motion of the ankle joint in dorsiflexion bilateral with the knee extended without pain or crepitus. There is decreased range of motion of the first metatarsophalangeal joint bilateral without pain or crepitus noted. Dermatological: There is noted bilateral lipodermatosclerosis with hyperpigmentation?hemosiderin staining to anterior lower extremity bilateral. There is a positive Stemmer sign noted bilateral second digit. Left lower extremity demonstrates no open wounds currently. Right lower extremity demonstrates a posterior mid calf ulceration secondary to chronic venous stasis/insufficiency. Ulceration demonstrates mixed fibrogranular layer with serous fluid drainage. Ulceration demonstrates localized rubor secondary to her chronic venous stasis. No signs of infection. Skin no rashes or lesions noted, skin turgor normal and no jaundice General Skin Exam: venous stasis and dermatitis Neuro moves all extremities Debridement Note Debridement Note Wound debrided: Posterior right lower extremity Laterality: Right Wound Grade/Stage: Talbot stage I Type of Debridement: Excisional debridement Anesthesia Used: 5% Lidocaine Gel Depth: Down to and including healthy tissue and in the subcutaneous layer Percentage of wound debrided: 100 Instrument Used: 5mm curette Tissue Removed: Fibrous, devitalized subcutaneous, biofilm, slough Severity: Fat Layer Exposed Amount of bleeding with debridement: Mild Bleeding Controlled with: Compression and gauze Patient tolerated procedure: Patient tolerated procedure well Post-Debridement Measurements and Additional Note: Post-Debridement Measurements/Treatment MAGNOLIA - Nurse 1 - General Ulcer Assessment Start: 06/25/23 08:05 Freq: Status: Active Protocol: ROBIN Activity Type Activity Date Activity User E-sign Co-sign Detail Recorded Client Recorded Date Recorded By Document 06/25/23 08:05 DL Desktop 06/25/23 08:10 DL 06/25/23 08:05 - Today's Visit Information 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 ) Arrival Mode Ambulatory Transfer Assistance None Patient Identification Verified (Name & Yes ) Patient Requires Transmission-Based No Precautions Finger Stick Blood Sugar(mg/dl) (if 116 indicated): Blood Sugar Stated by Patient Height and Weight Body Mass Index (BMI) 45.5 BMI Classification Obese Vital Signs Temperature (97.8 F-99.1 F) 98.4 F Temperature Source Temporal Pulse Rate (60-100) 98 Pulse Location Monitor Respiratory Rate (12-18) 20 H Respiratory rate source Observation Blood Pressure (90/60-120/80) 144/61 H Blood Pressure Mean (mm Hg) 88 Source Monitor History Since Last Visit- (Skip if this is Patient's initial visit) Have you changed medications since your No last visit? Any new allergies or adverse reactions No Had a fall/change in ADL's that may No increase risk of falls Signs or symptoms of abuse and/or No neglect since last visit Have you been in the hospital since your No last visit? Has dressing in place as prescribed Yes Has compression in place as prescribed Yes Has offloadiing in place as prescribed N/A Experienced any changes in pain level or No management Pain Scale: 0-10 Numeric Is Patient Pain Free? Yes - Nurse 1 - General Ulcer Measurement Start: 06/25/23 08:05 Freq: Status: Active Protocol: Activity Type Activity Date Activity User E-sign Co-sign Detail Recorded Client Recorded Date Recorded By Document 06/25/23 08:05 DL Desktop 06/25/23 08:10 DL 06/25/23 08:05 Wound Center Nurse 1 #1 RT POST LOWER EXT -Current Size (cm) - Length 1.2 -Current Size (cm) - Width 2.4 -Current Size (cm) - Depth 0.1 -Total Square Cm 2.88 -Epithelialization Small 1-33% -Tunneling No -Undermining/Tunneling No -Circular Undermining No -Exudate Amt Medium -Exudate Type Serosanguineous -Wound Margin Distinct, Outline Attached -Granulation Amt Large (67-100%) -Granulation Quality Kathleen -Slough/Fibrin Yes -Necrosis Amt Small (1-33%) -Necrotic Tissue Type Adherent Slough -Texture (Kelsea-wound Skin Appearance) Assessed, Scarring -Moisture (Kelsea-wound Skin Appearance) Assessed,Dry/ Scaly -Color (Kelsea-wound Skin Appearance) Assessed -Temperature (Kelsea-wound Skin No Abnormality Appearance) (Pt Warm) -Tenderness on Palpation (Kelsea-wound No Skin Appearance) -Ulcer Cleansing Soap and Water -Foul Odor after Cleansing No -Anesthetic Used 5% Lidocaine Gel Lower Limb Edema Present Yes Right Calf (cm) 42.3 Right Ankle (cm) 23 - Nurse 2 - General Ulcer CM Notes Start: 06/25/23 08:05 Freq: Status: Active Protocol: Activity Type Activity Date Activity User E-sign Co-sign Detail Recorded Client Recorded Date Recorded By Document 06/25/23 08:35 BMF Desktop 06/25/23 08:43 BMF 06/25/23 08:35 Wound Center Nurse 2 #1 RT POST LOWER EXT -Time 08:35 -Correct Patient Yes -Correct Side, Site, Position Yes -Correct Procedure Yes -Procedure Performed Yes -Type of Procedure Debridement -Clinical Debridement Subcutaneous -Tissue Removed Subcutaneous -Post Debridement (cm) - Length 1.6 -Post Debridement (cm) - Width 2.8 -Post Debridement (cm) - Depth 0.1 -Total Square (Post) (cm) 4.48 -Area of Debridement (cm) - Length 1.6 -Area of Debridement (cm) - Width 2.8 -Total Square (Area) (cm) 4.48 -Tunneling No -Undermining/Tunneling No -Circular Undermining No -Wound/Ulcer Outcome Not Healed -Ulcer Cleansing Rinsed/ Irrigated with Saline -Foul Odor after Cleansing No -Bioengineered Tissue Yes -Type of Bioengineered Tissue Theraskin -Expiration Date 09/10/27 -Product Lot Number [id number] -Percent Used 100 -Lot number of Saline Used [id number] -Bleeding Controlled with Pressure -Treatment Response Procedure Tolerated Well -Debridement - Subq, 1st 20sq cm No -Apply Skin Sub - 1st 25 sq cm - Legs 1 -Theraskin - 100TSXS (6 SQ CM) (per sq 6 cm) Pain Scale: 0-10 Numeric Is Patient Pain Free? Yes - Nurse 3 - General Ulcer D/C NN Start: 06/25/23 08:05 Freq: Status: Active Protocol: Activity Type Activity Date Activity User E-sign Co-sign Detail Recorded Client Recorded Date Recorded By Document 06/25/23 09:01 DC Desktop 06/25/23 09:03 DC 06/25/23 09:01 Wound Care Center Nurse 3 #1 RT POST LOWER EXT -Primary Dressing Covered/Secured with Dry Gauze & Roll Gauze, Secured with Tape Right -Tubular Bandage Double Layer -Size of Tubigrip Used Size E -Size E ($) 2 Left -Tubular Bandage Double Layer -Size of Tubigrip Used Size E -Size E ($) 2 Pain Scale: 0-10 Numeric Is Patient Pain Free? Yes - Visit Discharge Discharge Condition Stable Ambulatory Status Ambulatory, Walker Transportation Private Auto Medication Reconcilliation completed & No provided to patient/care provider Clinical Summary of Care Provided Yes Assessment/Plan Assessment/Plan (1) Non-pressure chronic ulcer of right calf with fat layer exposed: CODE(S): L97.212 - Non-pressure chronic ulcer of right calf with fat layer exposed (2) Venous insufficiency (chronic) (peripheral): CODE(S): I87.2 - Venous insufficiency (chronic) (peripheral) (3) Lymphedema, not elsewhere classified: CODE(S): I89.0 - Lymphedema, not elsewhere classified (4) Lipodermatosclerosis of both lower extremities: CODE(S): M79.3 - Panniculitis, unspecified (5) Diabetes: CODE(S): E11.9 - Type 2 diabetes mellitus without complications QUALIFIERS: Diabetes mellitus type: type 2 Diabetes mellitus nursing home insulin use: with tank terminal gauger use Diabetes mellitus complication status: with hyperglycemia Qualified Code(s): E11.65 - Type 2 diabetes mellitus with hyperglycemia; Z79.4 - watermelon harvesting supervisor (current) use of insulin (6) Obesity: CODE(S): E66.9 - Obesity, unspecified QUALIFIERS: Obesity type: due to excess calories Obesity classification: adult class 3 (BMI >= 40) Serious obesity comorbidity presence: with serious comorbidity Body mass index: BMI 40.0-44.9 Qualified Code(s): E66.01 - Morbid (severe) obesity due to excess calories; Z68.41 - Body mass index [BMI]40.0-44.9, adult (7) Mixed hyperlipidemia: CODE(S): E78.2 - Mixed hyperlipidemia (8) Benign hypertension: CODE(S): I10 - Essential (primary) hypertension PLAN: Plan Patient seen and evaluated Ulceration to the posterior right lower extremity underwent debridement as noted in the clinical panel above. Ulceration measures 1.6 cm x 2.8 cm x 0.1 cm. No signs of infection. TheraSkin graft #3 applied to the wound bed today. Graft anchored with Adaptic touch and Steri-Strips. Dry sterile dressing applied over the graft. Tubigrip compression applied to lower extremity bilateral. She was instructed to not get the dressings wet to the right lower extremity. There is noted change with reduction in size of ulceration versus previous visit. She has been approved for advanced wound care product, TheraSkin and will continue to apply. Discussed the importance of wearing compression stockings as patient has longstanding history of chronic venous insufficiency with lipodermatosclerosis of bilateral lower extremity. This was discussed with patient and daughter today. Discussed continued elevation of the lower extremities at all times of rest. Discussed the importance of compression to aid in wound healing in addition to preventing recidivism of wound following her healed status. Discussed adequate protein intake to aid in wound healing. Gunnar supplementation recommended. Discussed proper diabetic diet to aid in overall glycemic control. Discussed importance of glycemic control in healing. Discussed importance of daily foot checks, discussed she is to not ambulate barefoot, this includes socks. And shoe gear was encouraged to be worn at all times. Patient was encouraged to finish current oral antibiotic Bactrim to completion, stop date 06/05/2023. Discussed signs and symptoms of infection and to observe for. Discussed if she gets redness about the wound that moves up the leg, increasing purulent drainage, increasing foul odor from the wound, or if she experiences fever greater than 101 degree accompanied by nausea, vomiting, chills that these are signs of a progressing infection and she should report to the ED for IV antibiotics and further evaluation. She voices understanding of this today. The following work up and care recommendations were made: Dressing: TheraSkin, Adaptic touch, Steri-Strips, dry sterile dressing. Tubigrip compression bilateral lower extremity. Do not get wet right lower extremity Wash: Do not get wet Tissue growth optimization: TheraSkin Offload: Continue to elevate and pad posterior right lower extremity with pillow to offload ulcerative site. Vascular: Palpable DP and PT pulses with adequate capillary fill time, vascular status is not impacting healing at this time. Edema: Continued elevation of the lower extremities to aid in edema control, continued use of compression stockings Infection: No signs of infection. Patient currently finishing oral antibiotic as stated above. Pain: May take [id number] Tylenol for discomfort Host factors: DM type II, lipodermatosclerosis bilateral, chronic venous insufficiency/stasis, lymphedema, patient compliance in wearing compression stocking I answered all the patient's questions. To return to the wound healing center in 1 week or call sooner if the patient has any questions or concerns.
[2023-07-02 08:24] VITALS: BP 143/67; PULSE 107; RESP 16; TEMP 36.8; BMI 45.5
--- NOTE | 2023-07-02 08:29 | PCM.WC.PN ---
History of Present Illness Date of Service: 07/02/23 Chief Complaint: Right lower extremity ulceration History of Wound: Patient is a 77-year-old female with PMHx of HTN, diabetes mellitus type II, HLD, obesity who presents to the wound care center for right lower extremity ulceration with localized redness. Patient had been started on doxycycline and silver sulfasalazine cream with compression stocking. There was some improvement noted by nurse practitioner however they did switch her to Bactrim for 10 days, stop date 06/05/2023 and daily application of Medihoney. She states she has not been wearing the compression stockings or Tubigrip. She was referred to the wound center for a nonhealing ulceration to the posterior aspect of the right lower extremity. Patient denies N/V/F/chills. Denies further complaints. Subjective Subjective This is a 77-year-old female who presents today to the wound center for follow-up of right lower extremity ulceration. Patient has kept dressings clean, dry, and intact to bilateral lower extremity with graft in place. She is changing outer dressings as needed. States she feels she is making good progress. She denies constitutional symptoms today. Denies further complaints today. Objective Data Objective Data Vital Signs: Vital Signs Temp Pulse Resp BP O2 Del Method 98.2 F 107 H 16 143/67 H Room Air 07/02/23 08:24 07/02/23 08:24 07/02/23 08:24 07/02/23 08:24 07/02/23 08:24 Oxygen Delivery Method Room Air Weight: 109.316 kg Body Mass Index (BMI) 45.5 Physical Exam Const alert, oriented x3 and no apparent distress General Appearance: cooperative Nutritional Appearance: obese HEENT normocephalic Eyes General Eye: normal appearance of both eyes Neck General: normal visual inspection Lymph Lymphatic: no lymphadenopathy noted and no lymphedema noted Resp normal respiratory effort Cardio regular rate and regular rhythm Extremity normal capillary refill, no joint enlargement, no calf tenderness and no pedal edema Extremity Narrative: Vascular: DP and PT pulses palpable to bilateral lower extremity. Capillary fill time less than 4 seconds to digits bilateral. Temperature gradient is normal bilateral. Hair growth diminished to digits bilateral. Musculoskeletal: Muscle strength 5 of 5 age-appropriate. There is decreased range of motion of the ankle joint in dorsiflexion bilateral with the knee extended without pain or crepitus. There is decreased range of motion of the first metatarsophalangeal joint bilateral without pain or crepitus noted. Dermatological: There is noted bilateral lipodermatosclerosis with hyperpigmentation?hemosiderin staining to anterior lower extremity bilateral. There is a positive Stemmer sign noted bilateral second digit. Left lower extremity demonstrates no open wounds currently. Right lower extremity demonstrates a posterior mid calf ulceration secondary to chronic venous stasis/insufficiency. Ulceration demonstrates mixed fibrogranular layer with serous fluid drainage. Ulceration demonstrates localized rubor secondary to her chronic venous stasis. No signs of infection. Skin no rashes or lesions noted, skin turgor normal and no jaundice General Skin Exam: venous stasis and dermatitis Neuro moves all extremities Debridement Note Debridement Note Wound debrided: Right posterior lower extremity Laterality: Right Wound Grade/Stage: Talbot stage I Type of Debridement: Excisional debridement Anesthesia Used: 5% Lidocaine Gel Depth: Down to and including healthy tissue and in the subcutaneous layer Percentage of wound debrided: 100 Instrument Used: 5mm curette Tissue Removed: Fibrous, devitalized subcutaneous, biofilm, slough Severity: Fat Layer Exposed Amount of bleeding with debridement: Mild Bleeding Controlled with: Compression and gauze Patient tolerated procedure: Patient tolerated procedure well Post-Debridement Measurements and Additional Note: Post-Debridement Measurements/Treatment - Nurse 1 - General Ulcer Assessment Start: 06/25/23 08:05 Freq: Status: Active Protocol: ROBIN Activity Type Activity Date Activity User E-sign Co-sign Detail Recorded Client Recorded Date Recorded By Document 06/25/23 08:05 DL Desktop 06/25/23 08:10 DL Document 07/02/23 08:24 CP Desktop 07/02/23 08:27 CP 06/25/23 07/02/23 08:05 08:24 - Today's Visit Information Type of service Follow-up Visit Follow-up Visit (Physician/ESTIMATE CLERK (Physician/ESTIMATE CLERK ) ) Arrival Mode Ambulatory Ambulatory Transfer Assistance None Patient Identification Verified (Name & Yes Yes ) Patient Requires Transmission-Based No No Precautions Finger Stick Blood Sugar(mg/dl) (if 116 124 indicated): Blood Sugar Stated by Stated by Patient Patient Height and Weight Body Mass Index (BMI) 45.5 45.5 BMI Classification Obese Obese Vital Signs Temperature (97.8 F-99.1 F) 98.4 F 98.2 F Temperature Source Temporal Temporal Pulse Rate (60-100) 98 107 H Pulse Location Monitor Monitor Respiratory Rate (12-18) 20 H 16 Respiratory rate source Observation Observation Oxygen Delivery Method Room Air Blood Pressure (90/60-120/80) 144/61 H 143/67 H Blood Pressure Mean (mm Hg) 88 92 Source Monitor Monitor Position Sitting Blood Pressure Location Left Forearm History Since Last Visit- (Skip if this is Patient's initial visit) Have you changed medications since your No No last visit? Any new allergies or adverse reactions No No Had a fall/change in ADL's that may No No increase risk of falls Signs or symptoms of abuse and/or No No neglect since last visit Have you been in the hospital since your No No last visit? Has dressing in place as prescribed Yes Yes Has compression in place as prescribed Yes Yes Has offloadiing in place as prescribed N/A N/A Experienced any changes in pain level or No No management Pain Scale: 0-10 Numeric Is Patient Pain Free? Yes Yes WC - Nurse 1 - General Ulcer Measurement Start: 06/25/23 08:05 Freq: Status: Active Protocol: Activity Type Activity Date Activity User E-sign Co-sign Detail Recorded Client Recorded Date Recorded By Document 06/25/23 08:05 DL Desktop 06/25/23 08:10 DL Document 07/02/23 08:24 CP Desktop 07/02/23 08:27 CP 06/25/23 07/02/23 08:05 08:24 Wound Center Nurse 1 #1 RT POST LOWER EXT -Current Size (cm) - Length 1.2 1.3 -Current Size (cm) - Width 2.4 1.5 -Current Size (cm) - Depth 0.1 0.1 -Total Square Cm 2.88 1.95 -Photo Taken No -Epithelialization Small 1-33% Small 1-33% -Tunneling No No -Undermining/Tunneling No No -Circular Undermining No No -Exudate Amt Medium Small -Exudate Type Serosanguineous Serosanguineous -Wound Margin Distinct, Flat & Intact Outline Attached -Granulation Amt Large (67-100%) Large (67-100%) -Granulation Quality [place] -Slough/Fibrin Yes Yes -Necrosis Amt Small (1-33%) Small (1-33%) -Necrotic Tissue Type Adherent Slough Adherent Slough -Structure Exposed N/A -Texture ([place]-wound Skin Appearance) Assessed, No Abnormality Scarring -Moisture ([place]-wound Skin Appearance) Assessed,Dry/ Dry/Scaly Scaly -Color ([place]-wound Skin Appearance) Assessed No Abnormality -Temperature ([place]-wound Skin No Abnormality No Abnormality Appearance) (Pt Warm) (Pt Warm) -Tenderness on Palpation ([place]-wound No No Skin Appearance) -Ulcer Cleansing Soap and Water Soap and Water -Foul Odor after Cleansing No No -Anesthetic Used 5% Lidocaine 5% Lidocaine Gel Gel Lower Limb Edema Present Yes Right Calf (cm) 42.3 40.5 Right Ankle (cm) 23 24.6 WC - Nurse 2 - General Ulcer CM Notes Start: 06/25/23 08:05 Freq: Status: Active Protocol: Activity Type Activity Date Activity User E-sign Co-sign Detail Recorded Client Recorded Date Recorded By Document 06/25/23 08:[address] [facility] Desktop 06/25/23 08:[address] [facility] 06/25/23 08:35 Wound Center Nurse 2 #1 RT POST LOWER EXT -Time 08:35 -Correct Patient Yes -Correct Side, Site, Position Yes -Correct Procedure Yes -Procedure Performed Yes -Type of Procedure Debridement -Clinical Debridement Subcutaneous -Tissue Removed Subcutaneous -Post Debridement (cm) - Length 1.6 -Post Debridement (cm) - Width 2.8 -Post Debridement (cm) - Depth 0.1 -Total Square (Post) (cm) 4.48 -Area of Debridement (cm) - Length 1.6 -Area of Debridement (cm) - Width 2.8 -Total Square (Area) (cm) 4.48 -Tunneling No -Undermining/Tunneling No -Circular Undermining No -Wound/Ulcer Outcome Not Healed -Ulcer Cleansing Rinsed/ Irrigated with Saline -Foul Odor after Cleansing No -Bioengineered Tissue Yes -Type of Bioengineered Tissue Theraskin -Expiration Date 09/10/27 -Product Lot Number [id number] -Percent Used 100 -Lot number of Saline Used [id number] -Bleeding Controlled with Pressure -Treatment Response Procedure Tolerated Well -Debridement - Subq, 1st 20sq cm No -Apply Skin Sub - 1st 25 sq cm - Legs 1 -Theraskin - 100TSXS (6 SQ CM) (per sq 6 cm) Pain Scale: 0-10 Numeric Is Patient Pain Free? Yes WC - Nurse 3 - General Ulcer D/C NN Start: 06/25/23 08:05 Freq: Status: Active Protocol: Activity Type Activity Date Activity User E-sign Co-sign Detail Recorded Client Recorded Date Recorded By Document 06/25/23 09:01 [facility] Desktop 06/25/23 09:03 [facility] 06/25/23 09:01 Wound Care Center Nurse 3 #1 RT POST LOWER EXT -Primary Dressing Covered/Secured with Dry Gauze & Roll Gauze, Secured with Tape Right -Tubular Bandage Double Layer -Size of Tubigrip Used Size E -Size E ($) 2 Left -Tubular Bandage Double Layer -Size of Tubigrip Used Size E -Size E ($) 2 Pain Scale: 0-10 Numeric Is Patient Pain Free? Yes WC - Visit Discharge Discharge Condition Stable Ambulatory Status Ambulatory, Walker Transportation Private Auto Medication Reconcilliation completed & No provided to patient/care provider Clinical Summary of Care Provided Yes Assessment/Plan Assessment/Plan (1) Non-pressure chronic ulcer of right calf with fat layer exposed: CODE(S): L97.212 - Non-pressure chronic ulcer of right calf with fat layer exposed (2) Venous insufficiency (chronic) (peripheral): CODE(S): I87.2 - Venous insufficiency (chronic) (peripheral) (3) Lymphedema, not elsewhere classified: CODE(S): I89.0 - Lymphedema, not elsewhere classified (4) Lipodermatosclerosis of both lower extremities: CODE(S): M79.3 - Panniculitis, unspecified (5) Diabetes: CODE(S): E11.9 - Type 2 diabetes mellitus without complications QUALIFIERS: Diabetes mellitus complication status: with hyperglycemia Diabetes mellitus terminal computer operator insulin use: with terminal computer operator use Diabetes mellitus type: type 2 Qualified Code(s): E11.65 - Type 2 diabetes mellitus with hyperglycemia; Z79.4 - [facility] (current) use of insulin (6) Obesity: CODE(S): E66.9 - Obesity, unspecified QUALIFIERS: Body mass index: BMI 40.0-44.9 Obesity classification: adult class 3 (BMI >= 40) Obesity type: due to excess calories Serious obesity comorbidity presence: with serious comorbidity Qualified Code(s): E66.01 - Morbid (severe) obesity due to excess calories; Z68.41 - Body mass index [BMI]40.0-44.9, adult (7) Mixed hyperlipidemia: CODE(S): E78.2 - Mixed hyperlipidemia (8) Benign hypertension: CODE(S): I10 - Essential (primary) hypertension PLAN: Plan Patient seen and evaluated Ulceration to the posterior right lower extremity underwent debridement as noted in the clinical panel above. Ulceration measures 2.4 cm x 2.0 cm x 0.1 cm. No signs of infection. TheraSkin graft #4 applied to the wound bed today. Graft anchored with Adaptic touch and Steri-Strips. Dry sterile dressing applied over the graft. Tubigrip compression applied to lower extremity bilateral. She was instructed to not get the dressings wet to the right lower extremity. There is noted change with reduction in size of ulceration versus previous visit. She has been approved for advanced wound care product, TheraSkin and will continue to apply. Discussed the importance of wearing compression stockings as patient has longstanding history of chronic venous insufficiency with lipodermatosclerosis of bilateral lower extremity. This was discussed with patient and daughter today. Discussed continued elevation of the lower extremities at all times of rest. Discussed the importance of compression to aid in wound healing in addition to preventing recidivism of wound following her healed status. Discussed adequate protein intake to aid in wound healing. Gunnar supplementation recommended. Discussed proper diabetic diet to aid in overall glycemic control. Discussed importance of glycemic control in healing. Discussed importance of daily foot checks, discussed she is to not ambulate barefoot, this includes socks. And shoe gear was encouraged to be worn at all times. Patient was encouraged to finish current oral antibiotic Bactrim to completion, stop date 06/05/2023. Discussed signs and symptoms of infection and to observe for. Discussed if she gets redness about the wound that moves up the leg, increasing purulent drainage, increasing foul odor from the wound, or if she experiences fever greater than 101 degree accompanied by nausea, vomiting, chills that these are signs of a progressing infection and she should report to the ED for IV antibiotics and further evaluation. She voices understanding of this today. The following work up and care recommendations were made: Dressing: TheraSkin, Adaptic touch, Steri-Strips, dry sterile dressing. Tubigrip compression bilateral lower extremity. Do not get wet right lower extremity Wash: Do not get wet Tissue growth optimization: TheraSkin Offload: Continue to elevate and pad posterior right lower extremity with pillow to offload ulcerative site. Vascular: Palpable DP and PT pulses with adequate capillary fill time, vascular status is not impacting healing at this time. Edema: Continued elevation of the lower extremities to aid in edema control, continued use of compression stockings Infection: No signs of infection. Patient currently finishing oral antibiotic as stated above. Pain: May take [id number] Tylenol for discomfort Host factors: DM type II, lipodermatosclerosis bilateral, chronic venous insufficiency/stasis, lymphedema, patient compliance in wearing compression stocking I answered all the patient's questions. To return to the wound healing center in 1 week or call sooner if the patient has any questions or concerns.
[2023-07-09 08:24] VITALS: BP 99/69; PULSE 93; RESP 15; TEMP 36.4; BMI 45.5
--- NOTE | 2023-07-09 09:33 | PN.PCM_ITS ---
History of Present Illness Date of Service: 07/09/23 Chief Complaint: Right lower extremity ulceration History of Wound: Patient is a 77-year-old female with PMHx of HTN, diabetes mellitus type II, HLD, obesity who presents to the wound care center for right lower extremity ulceration with localized redness. Patient had been started on doxycycline and silver sulfasalazine cream with compression stocking. There was some improvement noted by nurse practitioner however they did switch her to Bactrim for 10 days, stop date 06/05/2023 and daily application of Medihoney. She states she has not been wearing the compression stockings or Tubigrip. She was referred to the wound center for a nonhealing ulceration to the posterior aspect of the right lower extremity. Patient denies N/V/F/chills. Denies further complaints. Subjective Subjective This is a 77-year-old female who presents today to the wound center for follow- up of right lower extremity ulceration. Patient has kept dressings clean, dry, and intact to bilateral lower extremity with graft in place. She is changing outer dressings as needed. States she feels she is making good progress and her wound may be healed. She denies constitutional symptoms today. Denies further complaints today. Objective Data Objective Data Vital Signs: Vital Signs Temp Pulse Resp BP O2 Del Method 97.6 F L 93 15 99/69 Room Air 07/09/23 08:24 07/09/23 08:24 07/09/23 08:24 07/09/23 08:24 07/02/23 08:24 Oxygen Delivery Method Room Air Weight: 109.316 kg Body Mass Index (BMI) 45.5 Physical Exam Const alert, oriented x3 and no apparent distress General Appearance: cooperative Nutritional Appearance: obese HEENT normocephalic Eyes General Eye: normal appearance of both eyes Neck General: normal visual inspection Lymph Lymphatic: no lymphadenopathy noted and no lymphedema noted Resp normal respiratory effort Cardio regular rate and regular rhythm Extremity normal capillary refill, no joint enlargement, no calf tenderness and no pedal edema Extremity Narrative: Vascular: DP and PT pulses palpable to bilateral lower extremity. Capillary fill time less than 4 seconds to digits bilateral. Temperature gradient is normal bilateral. Hair growth diminished to digits bilateral. Musculoskeletal: Muscle strength 5 of 5 age-appropriate. There is decreased range of motion of the ankle joint in dorsiflexion bilateral with the knee extended without pain or crepitus. There is decreased range of motion of the first metatarsophalangeal joint bilateral without pain or crepitus noted. Dermatological: There is noted bilateral lipodermatosclerosis with hyperpigmentation?hemosiderin staining to anterior lower extremity bilateral. There is a positive Stemmer sign noted bilateral second digit. Left lower extremity demonstrates no open wounds currently. Right lower extremity demonstrates a posterior mid calf ulceration secondary to chronic venous stasis/insufficiency. Ulceration demonstrates mixed fibrogranular layer with serous fluid drainage. Ulceration demonstrates localized rubor secondary to her chronic venous stasis. No signs of infection. Skin no rashes or lesions noted, skin turgor normal and no jaundice General Skin Exam: venous stasis and dermatitis Neuro moves all extremities Debridement Note Debridement Note No debridement was completed: No debridement was completed today Post-Debridement Measurements and Additional Note: Post-Debridement Measurements/Treatment - Nurse 1 - General Ulcer Assessment Start: 06/25/23 08:05 Freq: Status: Active Protocol: ROBIN Activity Type Activity Date Activity User E-sign Co-sign Detail Recorded Client Recorded Date Recorded By Document 06/25/23 08:05 DL Desktop 06/25/23 08:10 DL Document 07/02/23 08:24 CP Desktop 07/02/23 08:27 CP Document 07/09/23 08:24 ML Desktop 07/09/23 08:28 ML 06/25/23 07/02/23 07/09/23 08:05 08:24 08:24 - Today's Visit Information Type of service Follow-up Visit Follow-up Visit Follow-up Visit (Physician/MASSAGE COORDINATOR (Physician/MASSAGE COORDINATOR (Physician/MASSAGE COORDINATOR ) ) ) Arrival Mode Ambulatory Ambulatory Walker Transfer Assistance None None Patient Identification Verified (Name & Yes Yes Yes ) Patient Requires Transmission-Based No No No Precautions Finger Stick Blood Sugar(mg/dl) (if 116 124 117 indicated): Blood Sugar Stated by Stated by Stated by Patient Patient Patient Height and Weight Body Mass Index (BMI) 45.5 45.5 45.5 BMI Classification Obese Obese Obese Vital Signs Temperature (97.8 F-99.1 F) 98.4 F 98.2 F 97.6 F L Temperature Source Temporal Temporal Temporal Pulse Rate (60-100) 98 107 H 93 Pulse Location Monitor Monitor Monitor Respiratory Rate (12-18) 20 H 16 15 Respiratory rate source Observation Observation Observation Oxygen Delivery Method Room Air Blood Pressure (90/60-120/80) 144/61 H 143/67 H 99/69 Blood Pressure Mean (mm Hg) 88 92 79 Source Monitor Monitor Monitor Position Sitting Sitting Blood Pressure Location Left Forearm Left Arm History Since Last Visit- (Skip if this is Patient's initial visit) Have you changed medications since your No No No last visit? Any new allergies or adverse reactions No No No Had a fall/change in ADL's that may No No No increase risk of falls Signs or symptoms of abuse and/or No No No neglect since last visit Have you been in the hospital since your No No No last visit? Has dressing in place as prescribed Yes Yes Yes Has compression in place as prescribed Yes Yes Yes Has offloadiing in place as prescribed N/A N/A Experienced any changes in pain level or No No No management Left Footwear Regular Shoe Right Footwear Regular Shoe Pain Scale: 0-10 Numeric Is Patient Pain Free? Yes Yes Yes WC - Nurse 1 - General Ulcer Measurement Start: 06/25/23 08:05 Freq: Status: Active Protocol: Activity Type Activity Date Activity User E-sign Co-sign Detail Recorded Client Recorded Date Recorded By Document 06/25/23 08:05 DL Desktop 06/25/23 08:10 DL Document 07/02/23 08:24 CP Desktop 07/02/23 08:27 CP Document 07/09/23 08:24 ML Desktop 07/09/23 08:28 ML 06/25/23 07/02/23 07/09/23 08:05 08:24 08:24 Wound Center Nurse 1 #1 RT POST LOWER EXT -Current Size (cm) - Length 1.2 1.3 1.5 -Current Size (cm) - Width 2.4 1.5 1.7 -Current Size (cm) - Depth 0.1 0.1 0.1 -Total Square Cm 2.88 1.95 2.55 -Photo Taken No No -Epithelialization Small 1-33% Small 1-33% Medium 34-66% -Tunneling No No -Undermining/Tunneling No No -Circular Undermining No No No -Exudate Amt Medium Small Small -Exudate Type Serosanguineous Serosanguineous Serous -Wound Margin Distinct, Flat & Intact Distinct, Outline Outline Attached Attached -Granulation Amt Large (67-100%) Large (67-100%) Medium (34-66%) -Granulation Quality Roscoe Roscoe -Slough/Fibrin Yes Yes No -Necrosis Amt Small (1-33%) Small (1-33%) None Present (0 %) -Necrotic Tissue Type Adherent Slough Adherent Slough -Structure Exposed N/A -Texture ([place]else[place]-wound Skin Appearance) Assessed, No Abnormality No Abnormality Scarring -Moisture ([place]-wound Skin Appearance) Assessed,Dry/ Dry/Scaly No Abnormality Scaly -Color ([place]-wound Skin Appearance) Assessed No Abnormality No Abnormality -Temperature ([place]-wound Skin No Abnormality No Abnormality No Abnormality Appearance) (Pt Warm) (Pt Warm) (Pt Warm) -Tenderness on Palpation ([place]-wound No No No Skin Appearance) -Ulcer Cleansing Soap and Water Soap and Water Soap and Water -Foul Odor after Cleansing No No No -Anesthetic Used 5% Lidocaine 5% Lidocaine 5% Lidocaine Gel Gel Gel Lower Limb Edema Present Yes Right Calf (cm) 42.3 40.5 39 Right Ankle (cm) 23 24.6 23.5 Left Calf (cm) 38 Left Ankle (cm) 23 WC - Nurse 2 - General Ulcer CM Notes Start: 06/25/23 08:05 Freq: Status: Active Protocol: Activity Type Activity Date Activity User E-sign Co-sign Detail Recorded Client Recorded Date Recorded By Document 06/25/23 08:35 iPositioningop 06/25/23 08:43 Voicendo Document 07/02/23 08:40 iPositioningop 07/02/23 08:42 Voicendo Document 07/09/23 08:37 Voicendo Desktop 07/09/23 08:38 Voicendo 06/25/23 07/02/23 07/09/23 08:35 08:40 08:37 Wound Center Nurse 2 #1 RT POST LOWER EXT -Time 08:35 08:41 -Correct Patient Yes Yes -Correct Side, Site, Position Yes Yes -Correct Procedure Yes Yes -Procedure Performed Yes Yes -Type of Procedure Debridement Debridement -Clinical Debridement Subcutaneous Subcutaneous -Tissue Removed Subcutaneous Subcutaneous -Post Debridement (cm) - Length 1.6 2.4 -Post Debridement (cm) - Width 2.8 2 -Post Debridement (cm) - Depth 0.1 0.1 -Total Square (Post) (cm) 4.48 4.8 -Area of Debridement (cm) - Length 1.6 2.4 -Area of Debridement (cm) - Width 2.8 2 -Total Square (Area) (cm) 4.48 4.8 -Tunneling No No -Undermining/Tunneling No No -Circular Undermining No No -Wound/Ulcer Outcome Not Healed Not Healed Healed- Epithelialized -Ulcer Cleansing Rinsed/ Rinsed/ Irrigated with Irrigated with Saline Saline -Foul Odor after Cleansing No No -Bioengineered Tissue Yes Yes -Type of Bioengineered Tissue Theraskin Theraskin -Expiration Date 09/10/27 09/17/27 -Product Lot Number [id number] -Percent Used 100 100 -Lot number of Saline Used [id number] -Bleeding Controlled with Pressure Pressure -Treatment Response Procedure Procedure Tolerated Well Tolerated Well -Offloading No -Debridement - Subq, 1st 20sq cm No No -Apply Skin Sub - 1st 25 sq cm - Legs 1 1 -Theraskin - 3TS (3 SQ CM) (per sq cm) 3 -Theraskin - 100TSXS (6 SQ CM) (per sq 6 cm) Pain Scale: 0-10 Numeric Is Patient Pain Free? Yes Yes Yes - Nurse 3 - General Ulcer D/C NN Start: 06/25/23 08:05 Freq: Status: Active Protocol: Activity Type Activity Date Activity User E-sign Co-sign Detail Recorded Client Recorded Date Recorded By Document 06/25/23 09:01 MT Desktop 06/25/23 09:03 MT Document 07/02/23 08:52 KW Desktop 07/02/23 08:52 KW Document 07/09/23 09:06 DL Desktop 07/09/23 09:07 DL 06/25/23 07/02/23 07/09/23 09:01 08:52 09:06 Wound Care Center Nurse 3 #1 RT POST LOWER EXT -Ulcer Cleansing Rinsed/ Irrigated with Saline -Foul Odor after Cleansing No -Primary Dressing Applied Mepilex Border Mepilex Border -Primary Dressing Covered/Secured with Dry Gauze & Roll Gauze, Secured with Tape -Mepilex Border 1 1 zach -Tubular Bandage Single Layer -Size of Tubigrip Used Size D -Size D ($) 1 Right -Tubular Bandage Double Layer Double Layer -Size of Tubigrip Used Size E Size E -Size E ($) 2 2 Left -Tubular Bandage Double Layer Double Layer -Size of Tubigrip Used Size E Size E -Size E ($) 2 2 Treatment Response Procedure Tolerated Well Pain Scale: 0-10 Numeric Is Patient Pain Free? Yes Yes Yes WC - Visit Discharge Discharge Condition Stable Stable Stable Ambulatory Status Ambulatory, Walker Ambulatory, Walker Walker Transportation Private Auto Private Auto Private Auto Medication Reconcilliation completed & No No provided to patient/care provider Clinical Summary of Care Provided Yes Yes Notes: Healed/ discharged today. Assessment/Plan Assessment/Plan (1) Non-pressure chronic ulcer of right calf with fat layer exposed: CODE(S): L97.212 - Non-pressure chronic ulcer of right calf with fat layer exposed (2) Venous insufficiency (chronic) (peripheral): CODE(S): I87.2 - Venous insufficiency (chronic) (peripheral) (3) Lymphedema, not elsewhere classified: CODE(S): I89.0 - Lymphedema, not elsewhere classified (4) Lipodermatosclerosis of both lower extremities: CODE(S): M79.3 - Panniculitis, unspecified (5) Diabetes: CODE(S): E11.9 - Type 2 diabetes mellitus without complications QUALIFIERS: Diabetes mellitus type: type 2 Diabetes mellitus group home insulin use: with joint terminal attack controller use Diabetes mellitus complication status: with hyperglycemia Qualified Code(s): E11.65 - Type 2 diabetes mellitus with hyperglycemia; Z79.4 - manager terminal (current) use of insulin (6) Obesity: CODE(S): E66.9 - Obesity, unspecified QUALIFIERS: Obesity type: due to excess calories Obesity classification: adult class 3 (BMI >= 40) Serious obesity comorbidity presence: with serious comorbidity Body mass index: BMI 40.0-44.9 Qualified Code(s): E66.01 - Morbid (severe) obesity due to excess calories; Z68.41 - Body mass index [BMI]40.0-44.9, adult (7) Mixed hyperlipidemia: CODE(S): E78.2 - Mixed hyperlipidemia (8) Benign hypertension: CODE(S): I10 - Essential (primary) hypertension PLAN: Plan Patient seen and evaluated Ulceration to the posterior right lower extremity did not undergo debridement due to healed status. Ulceration has healed today. No signs of infection. She completed 4 total applications of TheraSkin to achieve healing status. Foam border dressing applied to pad and protect area. She was instructed to continue to pad and protect area for next 7 to 10 days. Tubigrip compression applied to lower extremity bilateral. Prescription for compression stocking was given today for 20 to 30 mmHg for 3 pairs. She will get fitted and continue to wear these compression stockings. Discussed the importance of wearing compression stockings as patient has longstanding history of chronic venous insufficiency with lipodermatosclerosis of bilateral lower extremity. This was discussed with patient and daughter today. Discussed continued elevation of the lower extremities at all times of rest. Discussed the importance of compression to aid in wound healing in addition to preventing recidivism of wound following her healed status. Discussed adequate protein intake to aid in wound healing. Gunnar supplementation recommended. Discussed proper diabetic diet to aid in overall glycemic control. Discussed importance of glycemic control in healing. Discussed importance of daily foot checks, discussed she is to not ambulate barefoot, this includes socks. And shoe gear was encouraged to be worn at all times. Discussed signs and symptoms of infection and to observe for. Discussed if she gets redness about the wound that moves up the leg, increasing purulent drainage, increasing foul odor from the wound, or if she experiences fever greater than 101 degree accompanied by nausea, vomiting, chills that these are signs of a progressing infection and she should report to the ED for IV anti biotics and further evaluation. She voices understanding of this today. The following work up and care recommendations were made: Dressing: Foam border dressing for next 7 to 10 days to pad and protect this area. She will change daily Wash: Soap and water Tissue growth optimization: None Offload: Continue to elevate and pad posterior right lower extremity with pillow to offload ulcerative site. Vascular: Palpable DP and PT pulses with adequate capillary fill time, vascular status is not impacting healing at this time. Edema: Continued elevation of the lower extremities to aid in edema control, continued use of compression stockings Infection: No signs of infection. Pain: May take [id number] Tylenol for discomfort Host factors: DM type II, lipodermatosclerosis bilateral, chronic venous insufficiency/stasis, lymphedema, patient compliance in wearing compression stocking Patient is discharged from the wound care center today due to healed status. I answered all the patient's questions. To return to the wound healing center as needed or call sooner if the patient has any questions or concerns.
== END 2023-07-21 23:59 | disposition home or self-care (01) ==
LOC: WC 08:00
PROVIDERS: PCP Nurse Practitioner Family; Referring Provider Nurse Practitioner Family; Visit Provider Student in an Organized Health Care Education/Training Program
DX: I87.2 Venous insufficiency (chronic) (peripheral) (principal); L97.212 Non-pressure chronic ulcer of right calf with fat layer exposed; Z68.42 Body mass index [BMI] 45.0-49.9, adult; E66.01 Morbid (severe) obesity due to excess calories; Z68.41 Body mass index [BMI] 40.0-44.9, adult; E11.9 Type 2 diabetes mellitus without complications; Z79.4 Long term (current) use of insulin; M79.3 Panniculitis, unspecified; E78.2 Mixed hyperlipidemia; I10 Essential (primary) hypertension; Z79.85 Long-term (current) use of injectable non-insulin antidiabetic drugs; Z79.899 Other long term (current) drug therapy
CPT/HCPCS: 15271; 99213; Q4121; G0463

== ENCOUNTER → 2024-06-29 | Outpatient (CLI) | payer MEDICARE, SELFPAY ==
--- NOTE | 2024-06-29 12:07 | NEURO ---
NCS and/or EMG Patient Report Ordering Doctor: Mary Staples DATE OF SERVICE: 06/29/24 Ludy presents complaints of numbness and tingling in the fingertips of the left hand and numbness and tingling in both legs. Electrodiagnostic findings: Left median motor nerve demonstrates prolonged latency with reduced amplitude and reduced conduction velocity. Left ulnar motor nerve demonstrates normal distal latency and amplitude with normal conduction velocity. Right peroneal motor nerve demonstrates normal distal latency with reduced amplitude and reduced conduction velocity. Right tibial motor nerve demonstrates prolonged latency with normal amplitude. Proximal response was not obtainable. Prolonged right tibial and right peroneal F?wave. H reflex was not obtainable on the right side. Needle EMG, muscles tested showed no evidence of denervation with normal motor unit action potentials. Electrodiagnostic impression: This an abnormal study. 1. Electrodiagnostic findings suggestive of peripheral polyneuropathy with motor and sensory nerve involvement. There is a combination of axonal loss and demyelination. There is likely a superimposed moderate left carpal tunnel syndrome. Multi Select Codes Neurology Neurology Interp Codes: 33419-40 Musc test done w/n test comp (interp) (2) and 89875-35 Nrv cndj test 9-10 studies (interp)
== END | disposition home or self-care (01) ==
PROVIDERS: PCP Student in an Organized Health Care Education/Training Program; Referring Provider Student in an Organized Health Care Education/Training Program; Visit Provider Student in an Organized Health Care Education/Training Program
DX: G60.9 Hereditary and idiopathic neuropathy, unspecified (principal)
CPT/HCPCS: 95886; 95911